=== PATIENT | female | born 1975 | race Caucasian/White ===

== ENCOUNTER 2025-01-08 13:22 | Inpatient (IN) | payer OTHER ==
[2025-01-08] VITALS (10 sets, daily range): BP systolic 123–144; BP diastolic 82–97; PULSE 63–100; RESP 24–27; TEMP 36.6–36.6404; O2SAT 58–100
[~2025-01-08] VITALS: Ht 167.6 cm; Wt 110.7 kg
[2025-01-08 14:58] LABS: BASOPHILS % 0.8 % (0.0-2.0); EOSINOPHILS % 2.1 % (0.0-5.0); HEMATOCRIT. 47.5 % (36.0-48.0); HEMOGLOBIN. 14.9 g/dL (12.0-16.0); LYMPHOCYTES % 30.8 % (20.0-50.0); MONOCYTES % 5.2 % (2.0-8.0); NEUTROPHILS % 61.1 % (40.0-76.0); RED BLOOD CELL COUNT 4.95 mill/uL (4.2-5.4); RED CELL DISTRIBUTION WIDTH 18.4 % (11.6-14.6)
[2025-01-08 15:05] LABS: CREATININE 0.9 mg/dL (0.6-1.0); UREA NITROGEN BLOOD 14 mg/dL (9-23)
[2025-01-08 15:07] LABS: ASPARTATE AMINOTRANSFERASE 130 IU/L (<34); BILIRUBIN DIRECT 0.3 mg/dL (<=3.0); BILIRUBIN TOTAL 0.6 mg/dL (0.1-1.0); PROTEIN TOTAL 7.1 g/dL (6.0-8.3)
[2025-01-08 15:10] LABS: INR 1.2
[2025-01-08 15:11] LABS: BG BASE EXCESS 8.3 mmol/L (-2.0-3.0); BG CARBOXYHEMOGLOBIN 1.7 % (0.5-1.5); BG DEOXYHEMOGLOBIN 2.5 % (0.0-5.0); BG FLOW(L/min) 15.00 L/min; BG FRACTION INSPIRED OXYGEN 100; BG HCO3 ACT 45.3 mmol/L (21.0-28.0); BG METHEMOGLOBIN 0.4 % (0.5-1.5); BG OXYGEN SATURATION 97.4 % (94.0-98.0); BG OXYHEMOGLOBIN 95.4 % (94.0-98.0); BG PCO2 150.5 mmHg (32.0-45.0); BG PH 7.096 (7.350-7.450); BG PO2 132.1 mmHg (83.0-108.0); BG SAMPLE SITE RIGHT RADIAL; BG TOTAL HEMOGLOBIN 16.7 g/dL (12.0-16.0); BG VENT MODE MASK - NRB
[2025-01-08 15:14] LABS: ADD RBC MORPHOLOGY YES
[2025-01-08] MEDS: PROPOFOL 10MG/ML 100ML 100 ML IV PRN (15:45)
[2025-01-08] MEDS ORDERED: PROPOFOL 10MG/ML 100ML 100 ML IV PRN (15:45)
[2025-01-08] MEDS: FENTANYL CITRATE/PF 50MCG/ML 2ML VIAL IV ONE (15:56)
[2025-01-08 16:05] LABS: MEAN PLATELET VOLUME 9.8 fl (7.4-10.4); PLATELET 143 x1000/uL (130-400)
[2025-01-08] MEDS ORDERED: VANCOMYCIN 1G PREMIX 200 ML IV STA (16:08)
[2025-01-08] MEDS: SODIUM CHLORIDE 0.9% (SEPSIS BOLUS) IV ONE ×3 (16:15→17:54)
[2025-01-08 16:28] LABS: PLATELET ESTIMATE NORMAL
[2025-01-08 17:46] LABS: INR 1.2
[2025-01-08 17:49] LABS: CREATININE 0.9 mg/dL (0.6-1.0); UREA NITROGEN BLOOD 15 mg/dL (9-23)
[2025-01-08] MEDS: PIPERACILLIN/TAZO 3.375G/50ML 50 ML IV STA (17:57)
[2025-01-08] MEDS: VANCOMYCIN 1G PREMIX 200 ML IV SCH (19:45)
[2025-01-08 20:40] LABS: CLARITY URINE CLEAR (CLEAR); COLOR URINE YELLOW (YELLOW); GLUCOSE URINE 3+ (NEGATIVE); KETONES URINE 1+ (NEGATIVE); LEUKOCYTE ESTERASE URINE NEGATIVE (NEGATIVE); NITRITE URINE POSITIVE (NEGATIVE); OCCULT BLOOD URINE NEGATIVE (NEGATIVE); PH URINE 6.0 (4.5-8.0); PROTEIN URINE 1+ (NEGATIVE); SPECIFIC GRAVITY URINE 1.024 (1.005-1.030); UROBILINOGEN URINE 1.0 E.U./dL (0.2-1.0)
[2025-01-08 20:51] LABS: BACTERIA URINE 3+; RBC URINE 0-2 /hpf (0-2); SQUAMOUS EPITHELIAL CELL URINE FEW /lpf (RARE/1+); WBC URINE 0-2 /hpf (0-2)
[2025-01-08] MEDS ORDERED: MIDAZOLAM 100MG/100ML PMX 100 ML IV PRN (21:30)
[2025-01-08] MEDS ORDERED: FENTANYL 2500MCG/250ML PMX 250 ML IV PRN (21:30)
[2025-01-08] MEDS ORDERED: GUAIFENESIN 200MG/10ML SUGAR FREE UDC PO PRN (22:00)
[2025-01-08] MEDS ORDERED: MAGNESIUM/ALUMINUM HYDROXIDE/SIMETHICONE 30ML UDC PO PRN (22:00)
[2025-01-08] MEDS ORDERED: IPRATROPIUM/ALBUTEROL 0.5-3(2.5)MG/3ML NEB HHN PRN (22:00)
[2025-01-08] MEDS: LORAZEPAM 2MG/ML UD SYRINGE IV PRN (22:26)
[2025-01-08] MEDS: MIDAZOLAM 100MG/100ML PMX 100 ML IV PRN (23:42)
[2025-01-08] MEDS: FENTANYL CITRATE/PF 2,500 MCG in SODIUM CHLORIDE 0.9% 200 ML IV PRN (23:43)
[2025-01-09] VITALS (108 sets, daily range): BP systolic 88–167; BP diastolic 55–114; PULSE 56–95; RESP 17–27; TEMP 36.6–37.5; O2SAT 91–100
[2025-01-09] MEDS: PIPERACILLIN/TAZO 3.375G/50ML 50 ML IV SCH (00:52)
[2025-01-09 02:27] LABS: TROPONIN I HIGH SENSITIVITY 121 ng/L (3.0-34)
[2025-01-09] MEDS: VANCOMYCIN 1GM/200ML PMX (BAXTER) IV SCH (02:57)
[2025-01-09] MEDS: AZITHROMYCIN 500MG/250ML 250 ML IV SCH (04:10)
[2025-01-09] MEDS ORDERED: DEXTROSE 50% WATER 50ML SYRINGE IV PRN (04:15)
[2025-01-09 05:00] LABS: BG BASE EXCESS 7.6 mmol/L (-2.0-3.0); BG CARBOXYHEMOGLOBIN 1.3 % (0.5-1.5); BG DEOXYHEMOGLOBIN 0.6 % (0.0-5.0); BG FRACTION INSPIRED OXYGEN 100; BG HCO3 ACT 33.4 mmol/L (21.0-28.0); BG METHEMOGLOBIN 0.2 % (0.5-1.5); BG OXYGEN SATURATION 99.4 % (94.0-98.0); BG OXYHEMOGLOBIN 97.9 % (94.0-98.0); BG PCO2 51.3 mmHg (32.0-45.0); BG PH 7.432 (7.350-7.450); BG PO2 151.5 mmHg (83.0-108.0); BG TIDAL VOLUME(mL) 450.0 mL; BG TOTAL HEMOGLOBIN 15.1 g/dL (12.0-16.0); BG VENT MODE VENT - AC
[2025-01-09 05:32] LABS: BASOPHILS % 0.5 % (0.0-2.0); EOSINOPHILS % 3.0 % (0.0-5.0); HEMATOCRIT. 43.5 % (36.0-48.0); HEMOGLOBIN. 13.6 g/dL (12.0-16.0); LYMPHOCYTES % 32.7 % (20.0-50.0); MEAN PLATELET VOLUME 9.2 fl (7.4-10.4); MONOCYTES % 4.1 % (2.0-8.0); NEUTROPHILS % 59.7 % (40.0-76.0); PLATELET 134 x1000/uL (130-400); RED BLOOD CELL COUNT 4.61 mill/uL (4.2-5.4); RED CELL DISTRIBUTION WIDTH 17.9 % (11.6-14.6)
[2025-01-09] MEDS: BLOOD SUGAR DIAGNOSTIC STRIP TEST SCH ×2 (05:58→12:00)
[2025-01-09 06:02] LABS: CREATININE 0.8 mg/dL (0.6-1.0); TRIGLYCERIDE 219 mg/dL (0-150); UREA NITROGEN BLOOD 12 mg/dL (9-23)
[2025-01-09 06:03] LABS: LDL CHOLESTEROL 117 mg/dL (5-100)
[2025-01-09] MEDS: FUROSEMIDE 20MG/2ML VIAL IVP NR (06:04)
[2025-01-09] MEDS: INSULIN LISPRO 100 UNITS/ML SUBCUT SCH ×2 (06:04→12:10)
[2025-01-09 06:26] LABS: TROPONIN I HIGH SENSITIVITY 115 ng/L (3.0-34)
[2025-01-09] MEDS: PANTOPRAZOLE SODIUM 40 MG/VIAL IV SCH (08:30)
[2025-01-09] MEDS: ENOXAPARIN 30MG/0.3ML SYR SUBCUT SCH (08:31)
[2025-01-09 09:14] LABS: T4 FREE 1.14 ng/dL (0.89-1.76)
[2025-01-09 09:25] LABS: BG BASE EXCESS 11.4 mmol/L (-2.0-3.0); BG CARBOXYHEMOGLOBIN 1.4 % (0.5-1.5); BG DEOXYHEMOGLOBIN 4.8 % (0.0-5.0); BG FRACTION INSPIRED OXYGEN 80; BG HCO3 ACT 36.3 mmol/L (21.0-28.0); BG METHEMOGLOBIN 0.1 % (0.5-1.5); BG OXYGEN SATURATION 95.1 % (94.0-98.0); BG OXYHEMOGLOBIN 93.7 % (94.0-98.0); BG PCO2 47.7 mmHg (32.0-45.0); BG PEEP (cmH2O) 8.0 cmH2O; BG PH 7.499 (7.350-7.450); BG PO2 69.3 mmHg (83.0-108.0); BG SAMPLE SITE RIGHT RADIAL; BG TIDAL VOLUME(mL) 450.0 mL; BG TOTAL HEMOGLOBIN 14.8 g/dL (12.0-16.0); BG VENT MODE VENT - AC; BG VENT RATE 24.0 set
[2025-01-09 10:34] LABS: *AMPHETAMINES SCREEN URINE NEGATIVE (NEGATIVE); *BARBITURATES SCREEN URINE NEGATIVE (NEGATIVE); *BENZODIAZEPINES SCREEN URINE PRESUMPTIVE POSITIVE (NEGATIVE); *COCAINE SCREEN URINE NEGATIVE (NEGATIVE); CANNABINOID URINE SCREEN NEGATIVE (NEGATIVE); ECSTASY MDMA SCREEN URINE NEGATIVE (NEGATIVE); METHADONE URINE SCREEN NEGATIVE (NEGATIVE); OPIATES URINE SCREEN NEGATIVE (NEGATIVE); PHENCYCLIDINE URINE SCREEN NEGATIVE (NEGATIVE)
[2025-01-09] MEDS: INSULIN GLARGINE 100 UNITS/ML SUBCUT SCH (10:39)
[2025-01-09] MEDS: VANCOMYCIN 1.5GM/250ML 250 ML IV SCH (10:59)
[2025-01-09] MEDS ORDERED: SODIUM CHLORIDE 0.9% 1,000 ML IV SCH (14:00)
[2025-01-09 14:30] LABS: INFLUENZA TYPE A Presumptive Negative (Pres. Neg.); INFLUENZA TYPE B Presumptive Negative (Pres. Neg.)
[2025-01-09 20:25] LABS: INFLUENZA TYPE A Presumptive Negative (Pres. Neg.)
[2025-01-09 20:26] LABS: INFLUENZA TYPE B Presumptive Negative (Pres. Neg.)
[2025-01-10] VITALS (108 sets, daily range): BP systolic 78–156; BP diastolic 48–130; PULSE 61–92; RESP 15–27; TEMP 37.3–37.7; O2SAT 89–95
[2025-01-10] MEDS: AZITHROMYCIN 500MG/250ML 250 ML IV SCH (01:08)
[2025-01-10 05:07] LABS: UREA NITROGEN BLOOD 13.0 mg/dL (9-23)
[2025-01-10 05:18] LABS: CREATININE 1.7 mg/dL (0.6-1.0)
[2025-01-10] MEDS ORDERED: POTASSIUM CHLORIDE 40 MEQ in DEXT 5% WATER 230 ML IV ONE (07:30)
[2025-01-10] MEDS: DEXMEDETOMIDINE 250 ML IV PRN (09:19)
[2025-01-10 09:30] LABS: BG BASE EXCESS 8.2 mmol/L (-2.0-3.0); BG CARBOXYHEMOGLOBIN 1.4 % (0.5-1.5); BG DEOXYHEMOGLOBIN 6.2 % (0.0-5.0); BG FRACTION INSPIRED OXYGEN 100; BG HCO3 ACT 33.5 mmol/L (21.0-28.0); BG METHEMOGLOBIN 0.1 % (0.5-1.5); BG OXYGEN SATURATION 93.7 % (94.0-98.0); BG OXYHEMOGLOBIN 92.3 % (94.0-98.0); BG PCO2 48.4 mmHg (32.0-45.0); BG PEEP (cmH2O) 8.0 cmH2O; BG PH 7.458 (7.350-7.450); BG PO2 67.5 mmHg (83.0-108.0); BG SAMPLE SITE RIGHT RADIAL; BG TIDAL VOLUME(mL) 500.0 mL; BG TOTAL HEMOGLOBIN 15.2 g/dL (12.0-16.0); BG VENT MODE VENT - AC; BG VENT RATE 24.0 set
[2025-01-10] MEDS: INSULIN GLARGINE 100 UNITS/ML SUBCUT SCH (09:35)
[2025-01-10] MEDS: KCL 20MEQ/100ML X 2 FOR TOTAL KCL 40MEQ/200ML IV SCH ×2 (09:37→14:30)
[2025-01-10] MEDS: SODIUM CHLORIDE 0.9% 500 ML IV ONE (11:00)
[2025-01-10 11:19] LABS: PHOSPHORUS 2.1 mg/dL (2.5-4.9)
[2025-01-10 11:21] LABS: TRIGLYCERIDE 233 mg/dL (0-150)
[2025-01-10 11:22] LABS: LDL CHOLESTEROL 110 mg/dL (5-100)
[2025-01-10 11:23] LABS: T4 FREE 1.03 ng/dL (0.89-1.76)
[2025-01-10 14:14] LABS: ASPARTATE AMINOTRANSFERASE 85 IU/L (<34)
[2025-01-10 14:15] LABS: BILIRUBIN DIRECT 0.4 mg/dL (<=3.0); BILIRUBIN TOTAL 0.9 mg/dL (0.1-1.0); PROTEIN TOTAL 5.6 g/dL (6.0-8.3)
[2025-01-10 14:26] LABS: CREATINE KINASE MB FRACTION 1.1 ng/mL (0.5-3.6)
[2025-01-10 14:31] LABS: TROPONIN I HIGH SENSITIVITY 68.0 ng/L (3.0-34)
[2025-01-10] MEDS: SODIUM CHLORIDE 0.9% 1,000 ML IV SCH (15:45)
[2025-01-10] MEDS: MAGNESIUM 2 G PREMIX 50 ML IV SCH (15:53)
[2025-01-11] VITALS (105 sets, daily range): BP systolic 84–237; BP diastolic 46–125; PULSE 47–70; RESP 6–27; TEMP 37.1–39.5; O2SAT 90–100
[2025-01-11] MEDS: ACETAMINOPHEN 325MG TABLET NG PRN (00:01)
[2025-01-11 01:24] LABS: CREATINE KINASE MB FRACTION < 0.5 ng/mL (0.5-3.6)
[2025-01-11 01:30] LABS: TROPONIN I HIGH SENSITIVITY 52 ng/L (3.0-34)
[2025-01-11 06:09] LABS: BASOPHILS % 0.6 % (0.0-2.0); EOSINOPHILS % 2.2 % (0.0-5.0); HEMATOCRIT. 47.0 % (36.0-48.0); HEMOGLOBIN. 14.8 g/dL (12.0-16.0); LYMPHOCYTES % 24.9 % (20.0-50.0); MEAN PLATELET VOLUME 9.7 fl (7.4-10.4); MONOCYTES % 3.8 % (2.0-8.0); NEUTROPHILS % 68.5 % (40.0-76.0); PLATELET 160 x1000/uL (130-400); RED BLOOD CELL COUNT 5.01 mill/uL (4.2-5.4); RED CELL DISTRIBUTION WIDTH 18.3 % (11.6-14.6)
[2025-01-11 06:11] LABS: CREATINE KINASE MB FRACTION < 0.5 ng/mL (0.5-3.6)
[2025-01-11 06:13] LABS: UREA NITROGEN BLOOD 21.0 mg/dL (9-23)
[2025-01-11 06:31] LABS: CREATININE 3.7 mg/dL (0.6-1.0); TROPONIN I HIGH SENSITIVITY 47 ng/L (3.0-34)
[2025-01-11 09:11] LABS: RESPIRATORY SYNCYTIAL VIRUS Not Detected (Not Detectd)
[2025-01-11] MEDS ORDERED: SODIUM BICARBONATE 8.4% 50MEQ/50ML SYR IV ONE (09:30)
[2025-01-11 09:51] LABS: BG BASE EXCESS 3.8 mmol/L (-2.0-3.0); BG CARBOXYHEMOGLOBIN 2.2 % (0.5-1.5); BG DEOXYHEMOGLOBIN 5.3 % (0.0-5.0); BG FRACTION INSPIRED OXYGEN 100; BG HCO3 ACT 27.6 mmol/L (21.0-28.0); BG METHEMOGLOBIN 0.1 % (0.5-1.5); BG OXYGEN SATURATION 94.6 % (94.0-98.0); BG OXYHEMOGLOBIN 92.4 % (94.0-98.0); BG PCO2 39.1 mmHg (32.0-45.0); BG PEEP (cmH2O) 8.0 cmH2O; BG PH 7.467 (7.350-7.450); BG PO2 68.0 mmHg (83.0-108.0); BG SAMPLE SITE RIGHT BRACHIAL; BG TIDAL VOLUME(mL) 500.0 mL; BG TOTAL HEMOGLOBIN 15.5 g/dL (12.0-16.0); BG VENT MODE VENT - CPAP; BG VENT RATE 24.0 set
[2025-01-11] MEDS: SODIUM BICARBONATE 8.4% 50MEQ/50ML SYR IV SCH (11:09)
[2025-01-11] MEDS: SODIUM CHLORIDE 0.9% 500 ML IV SCH (11:12)
[2025-01-11] MEDS ORDERED: LIDOCAINE HCL 1% 10 MG/ML 10ML VIAL ONE (12:16)
[2025-01-11] MEDS ORDERED: HEPARIN 1000 UNITS/ML 10ML ONE (12:16)
[2025-01-11] MEDS: FUROSEMIDE 100MG/10ML VIAL IVP SCH (12:50)
[2025-01-11] MEDS: NOREPINEPHRINE 32 MG in DEXT 5% WATER 218 ML IV PRN (13:00)
[2025-01-11 13:54] LABS: HEPATITIS A AB IGM NEGATIVE (Negative)
[2025-01-11 13:55] LABS: HEPATITIS B CORE AB IGM NEGATIVE (Negative)
[2025-01-11 13:56] LABS: HEPATITIS C AB NON REACTIVE (Neg) (Negative)
[2025-01-11 14:42] LABS: CREATININE URINE RANDOM 128.2 mg/dL
[2025-01-11 14:49] LABS: PROTEIN URINE RANDOM 237.0 mg/dL
[2025-01-11 15:00] LABS: RESPIRATORY SYNCYTIAL VIRUS Not Detected (Not Detectd)
[2025-01-11] MEDS: INSULIN LISPRO 100 UNITS/ML SUBCUT SCH (16:39)
[2025-01-12] VITALS (100 sets, daily range): BP systolic 81–187; BP diastolic 42–120; PULSE 47–65; RESP 0–27; TEMP 36.3918–37.9; O2SAT 90–99
[2025-01-12 05:49] LABS: BASOPHILS % 0.5 % (0.0-2.0); EOSINOPHILS % 2.0 % (0.0-5.0); HEMATOCRIT. 43.9 % (36.0-48.0); HEMOGLOBIN. 14.1 g/dL (12.0-16.0); LYMPHOCYTES % 23.3 % (20.0-50.0); MEAN PLATELET VOLUME 9.2 fl (7.4-10.4); MONOCYTES % 3.7 % (2.0-8.0); NEUTROPHILS % 70.5 % (40.0-76.0); PLATELET 152 x1000/uL (130-400); RED BLOOD CELL COUNT 4.75 mill/uL (4.2-5.4); RED CELL DISTRIBUTION WIDTH 18.6 % (11.6-14.6)
[2025-01-12 05:59] LABS: CREATININE 4.7 mg/dL (0.6-1.0); UREA NITROGEN BLOOD 28.0 mg/dL (9-23)
[2025-01-12 09:04] LABS: BG BASE EXCESS -0.4 mmol/L (-2.0-3.0); BG CARBOXYHEMOGLOBIN 1.6 % (0.5-1.5); BG DEOXYHEMOGLOBIN 5.4 % (0.0-5.0); BG FRACTION INSPIRED OXYGEN 80; BG HCO3 ACT 22.2 mmol/L (21.0-28.0); BG METHEMOGLOBIN 0.1 % (0.5-1.5); BG OXYGEN SATURATION 94.5 % (94.0-98.0); BG OXYHEMOGLOBIN 92.9 % (94.0-98.0); BG PCO2 31.4 mmHg (32.0-45.0); BG PEEP (cmH2O) 8.0 cmH2O; BG PH 7.468 (7.350-7.450); BG PO2 71.9 mmHg (83.0-108.0); BG SAMPLE SITE RIGHT BRACHIAL; BG TIDAL VOLUME(mL) 500.0 mL; BG TOTAL HEMOGLOBIN 15.2 g/dL (12.0-16.0); BG VENT MODE VENT - AC; BG VENT RATE 24.0 set
[2025-01-12] MEDS: PIPERACILLIN/TAZO 3.375G/50ML IV SCH (21:10)
[2025-01-13] VITALS (111 sets, daily range): BP systolic 63–187; BP diastolic 45–105; PULSE 55–77; RESP 7–28; TEMP 36.6–37.4; O2SAT 84–99
[2025-01-13 05:35] LABS: BASOPHILS % 0.4 % (0.0-2.0); EOSINOPHILS % 3.1 % (0.0-5.0); HEMATOCRIT. 40.9 % (36.0-48.0); HEMOGLOBIN. 13.1 g/dL (12.0-16.0); LYMPHOCYTES % 18.7 % (20.0-50.0); MEAN PLATELET VOLUME 10.2 fl (7.4-10.4); MONOCYTES % 4.5 % (2.0-8.0); NEUTROPHILS % 73.3 % (40.0-76.0); PLATELET 170 x1000/uL (130-400); RED BLOOD CELL COUNT 4.37 mill/uL (4.2-5.4); RED CELL DISTRIBUTION WIDTH 18.3 % (11.6-14.6)
[2025-01-13 06:13] LABS: UREA NITROGEN BLOOD 29 mg/dL (9-23)
[2025-01-13 06:14] LABS: ASPARTATE AMINOTRANSFERASE 34 IU/L (<34); BILIRUBIN DIRECT 0.3 mg/dL (<=3.0); PHOSPHORUS 5.0 mg/dL (2.5-4.9)
[2025-01-13 06:15] LABS: BILIRUBIN TOTAL 0.6 mg/dL (0.1-1.0); PROTEIN TOTAL 5.6 g/dL (6.0-8.3)
[2025-01-13 06:35] LABS: CREATININE 5.2 mg/dL (0.6-1.0)
[2025-01-13] MEDS: METHYLPREDNISOLONE SOD SUCC 40MG/ML (ACT-O-VIAL) IV SCH (08:15)
[2025-01-13 09:05] LABS: BG BASE EXCESS -0.1 mmol/L (-2.0-3.0); BG CARBOXYHEMOGLOBIN 0.8 % (0.5-1.5); BG DEOXYHEMOGLOBIN 6.7 % (0.0-5.0); BG FRACTION INSPIRED OXYGEN 70; BG HCO3 ACT 24.7 mmol/L (21.0-28.0); BG METHEMOGLOBIN 0.3 % (0.5-1.5); BG OXYGEN SATURATION 93.2 % (94.0-98.0); BG OXYHEMOGLOBIN 92.2 % (94.0-98.0); BG PCO2 41.1 mmHg (32.0-45.0); BG PEEP (cmH2O) 8.0 cmH2O; BG PH 7.397 (7.350-7.450); BG PO2 66.2 mmHg (83.0-108.0); BG SAMPLE SITE RIGHT RADIAL; BG TIDAL VOLUME(mL) 500.0 mL; BG TOTAL HEMOGLOBIN 15.0 g/dL (12.0-16.0); BG TOTAL RESPIRATORY RATE 22 b/min; BG VENT MODE VENT - AC; BG VENT RATE 20.0 set
[2025-01-13] MEDS: DOCUSATE SODIUM 100MG CAPSULE PO SCH (09:18)
[2025-01-13] MEDS ORDERED: INSULIN LISPRO 100 UNITS/ML SUBCUT SCH (11:30)
[2025-01-13] MEDS: MAGNESIUM 2 G PREMIX 50 ML IV NR (12:43)
[2025-01-13] MEDS ORDERED: LACTULOSE 20G/30ML UDC PO PRN (21:00)
[2025-01-13] MEDS: IPRATROPIUM/ALBUTEROL 0.5-3(2.5)MG/3ML NEB NEB PRN (21:14)
[2025-01-13 22:09] LABS: BG BASE EXCESS -3.7 mmol/L (-2.0-3.0); BG CARBOXYHEMOGLOBIN 0.7 % (0.5-1.5); BG DEOXYHEMOGLOBIN 12.9 % (0.0-5.0); BG FRACTION INSPIRED OXYGEN 100; BG HCO3 ACT 22.4 mmol/L (21.0-28.0); BG METHEMOGLOBIN 0.3 % (0.5-1.5); BG OXYGEN SATURATION 87.0 % (94.0-98.0); BG OXYHEMOGLOBIN 86.1 % (94.0-98.0); BG PCO2 44.2 mmHg (32.0-45.0); BG PEEP (cmH2O) 12.0 cmH2O; BG PH 7.323 (7.350-7.450); BG PO2 56.0 mmHg (83.0-108.0); BG SAMPLE SITE ALINE; BG TIDAL VOLUME(mL) 500.0 mL; BG TOTAL HEMOGLOBIN 15.8 g/dL (12.0-16.0); BG VENT RATE 20.0 set
[2025-01-13] MEDS ORDERED: LORAZEPAM 0.5MG TABLET PO PRN (22:15)
[2025-01-13] MEDS: VECURONIUM BROMIDE 50 MG in DEXTROSE 5% WATER 50 ML IV PRN (23:01)
[2025-01-14] VITALS (106 sets, daily range): BP systolic 121–140; BP diastolic 91–99; PULSE 51–64; RESP 11–21; TEMP 36.8–37.2; O2SAT 82–93
[2025-01-14 01:03] LABS: BG BASE EXCESS -5.2 mmol/L (-2.0-3.0); BG CARBOXYHEMOGLOBIN 0.7 % (0.5-1.5); BG DEOXYHEMOGLOBIN 8.2 % (0.0-5.0); BG FRACTION INSPIRED OXYGEN 100; BG HCO3 ACT 20.8 mmol/L (21.0-28.0); BG METHEMOGLOBIN 0.3 % (0.5-1.5); BG OXYGEN SATURATION 91.7 % (94.0-98.0); BG OXYHEMOGLOBIN 90.8 % (94.0-98.0); BG PCO2 42.1 mmHg (32.0-45.0); BG PEEP (cmH2O) 12.0 cmH2O; BG PH 7.311 (7.350-7.450); BG PO2 67.4 mmHg (83.0-108.0); BG SAMPLE SITE ALINE; BG TIDAL VOLUME(mL) 500.0 mL; BG TOTAL HEMOGLOBIN 15.2 g/dL (12.0-16.0); BG VENT RATE 20.0 set
[2025-01-14] MEDS ORDERED: FENTANYL 2500MCG/250ML PMX 250 ML IV ONE (03:45)
[2025-01-14 05:24] LABS: HEMATOCRIT. 44.9 % (36.0-48.0); HEMOGLOBIN. 14.4 g/dL (12.0-16.0); RED BLOOD CELL COUNT 4.83 mill/uL (4.2-5.4); RED CELL DISTRIBUTION WIDTH 18.0 % (11.6-14.6)
[2025-01-14 05:33] LABS: CREATININE 4.7 mg/dL (0.6-1.0); UREA NITROGEN BLOOD 41 mg/dL (9-23)
[2025-01-14 05:35] LABS: PHOSPHORUS 6.7 mg/dL (2.5-4.9)
[2025-01-14] MEDS: FENTANYL CITRATE 2,500 MCG in SODIUM CHLORIDE 0.9% 200 ML IV PRN (07:23)
[2025-01-14] MEDS ORDERED: MIDAZOLAM 100MG/100ML PMX 100 ML IV PRN ×2 (08:00→09:15)
[2025-01-14] MEDS: ENOXAPARIN 40MG/0.4ML SYR SUBCUT SCH (08:18)
[2025-01-14 08:39] LABS: BG BASE EXCESS -5.6 mmol/L (-2.0-3.0); BG CARBOXYHEMOGLOBIN 0.7 % (0.5-1.5); BG DEOXYHEMOGLOBIN 7.7 % (0.0-5.0); BG FRACTION INSPIRED OXYGEN 100; BG HCO3 ACT 20.7 mmol/L (21.0-28.0); BG METHEMOGLOBIN 0.3 % (0.5-1.5); BG OXYGEN SATURATION 92.2 % (94.0-98.0); BG OXYHEMOGLOBIN 91.3 % (94.0-98.0); BG PCO2 43.3 mmHg (32.0-45.0); BG PEEP (cmH2O) 12.0 cmH2O; BG PH 7.298 (7.350-7.450); BG PO2 68.4 mmHg (83.0-108.0); BG SAMPLE SITE ALINE; BG TIDAL VOLUME(mL) 500.0 mL; BG TOTAL HEMOGLOBIN 15.6 g/dL (12.0-16.0); BG VENT MODE VENT - AC; BG VENT RATE 20.0 set
[2025-01-14] MEDS: MIDAZOLAM 100MG/100ML PREMIX IV PRN (09:36)
[2025-01-14 10:32] LABS: BAND% 13.0 % (1.0-6.0); LYMPHOCYTES % MANUAL 13.0 % (20.0-60.0); MONOCYTES % MANUAL 1.0 % (2.0-8.0); NEUTROPHILS % MANUAL 73.0 % (45.0-75.0)
[2025-01-14 10:33] LABS: PLATELET ESTIMATE NORMAL
[2025-01-14 14:24] LABS: PLATELET 196 x1000/uL (130-400)
[2025-01-14] MEDS: METHYLPREDNISOLONE SOD SUCC 125MG/2ML (ACT-O-VIAL) IV SCH (16:50)
[2025-01-15] VITALS (109 sets, daily range): BP systolic 94–217; BP diastolic 69–118; PULSE 50–101; RESP 7–26; TEMP 37–38; O2SAT 87–99
[2025-01-15] MEDS: INSULIN LISPRO 100 UNITS/ML SUBCUT SCH (05:35)
[2025-01-15 05:51] LABS: BASOPHILS % 0.3 % (0.0-2.0); EOSINOPHILS % 0.1 % (0.0-5.0); HEMATOCRIT. 46.1 % (36.0-48.0); HEMOGLOBIN. 14.6 g/dL (12.0-16.0); LYMPHOCYTES % 9.6 % (20.0-50.0); MEAN PLATELET VOLUME 10.5 fl (7.4-10.4); MONOCYTES % 2.0 % (2.0-8.0); NEUTROPHILS % 88.0 % (40.0-76.0); PLATELET 244 x1000/uL (130-400); RED BLOOD CELL COUNT 4.99 mill/uL (4.2-5.4); RED CELL DISTRIBUTION WIDTH 17.8 % (11.6-14.6)
[2025-01-15 06:03] LABS: UREA NITROGEN BLOOD 69 mg/dL (9-23)
[2025-01-15 06:05] LABS: ASPARTATE AMINOTRANSFERASE 19 IU/L (<34); BILIRUBIN DIRECT 0.3 mg/dL (<=3.0); BILIRUBIN TOTAL 0.4 mg/dL (0.1-1.0); PROTEIN TOTAL 6.0 g/dL (6.0-8.3)
[2025-01-15 06:17] LABS: CREATININE 6.0 mg/dL (0.6-1.0)
[2025-01-15] MEDS: METOCLOPRAMIDE HCL 10MG/2ML VIAL IV SCH (08:27)
[2025-01-15] MEDS: INSULIN GLARGINE 100 UNITS/ML SUBCUT SCH (10:06)
[2025-01-15 10:42] LABS: BG BASE EXCESS -7.0 mmol/L (-2.0-3.0); BG CARBOXYHEMOGLOBIN 0.6 % (0.5-1.5); BG DEOXYHEMOGLOBIN 11.8 % (0.0-5.0); BG FRACTION INSPIRED OXYGEN 90; BG HCO3 ACT 18.7 mmol/L (21.0-28.0); BG METHEMOGLOBIN 0.3 % (0.5-1.5); BG OXYGEN SATURATION 88.1 % (94.0-98.0); BG OXYHEMOGLOBIN 87.3 % (94.0-98.0); BG PCO2 38.8 mmHg (32.0-45.0); BG PEEP (cmH2O) 12.0 cmH2O; BG PH 7.302 (7.350-7.450); BG PO2 59.5 mmHg (83.0-108.0); BG SAMPLE SITE RIGHT RADIAL; BG TIDAL VOLUME(mL) 500.0 mL; BG TOTAL HEMOGLOBIN 16.0 g/dL (12.0-16.0); BG VENT MODE VENT - PRVC; BG VENT RATE 20.0 set
[2025-01-15] MEDS: DEXMEDETOMIDINE 250 ML IV PRN (11:43)
[2025-01-15] MEDS ORDERED: TOPUD MT (12:27)
[2025-01-16] VITALS (106 sets, daily range): BP systolic 103–144; BP diastolic 71–127; PULSE 52–61; RESP 11–23; TEMP 36.7–37.3; O2SAT 91–99
[2025-01-16 05:29] LABS: BASOPHILS % 0.3 % (0.0-2.0); EOSINOPHILS % 0.0 % (0.0-5.0); HEMATOCRIT. 45.3 % (36.0-48.0); HEMOGLOBIN. 14.5 g/dL (12.0-16.0); LYMPHOCYTES % 13.0 % (20.0-50.0); MEAN PLATELET VOLUME 9.9 fl (7.4-10.4); MONOCYTES % 2.4 % (2.0-8.0); NEUTROPHILS % 84.3 % (40.0-76.0); PLATELET 184 x1000/uL (130-400); RED BLOOD CELL COUNT 4.96 mill/uL (4.2-5.4); RED CELL DISTRIBUTION WIDTH 17.6 % (11.6-14.6)
[2025-01-16 05:50] LABS: UREA NITROGEN BLOOD 80 mg/dL (9-23)
[2025-01-16 05:52] LABS: PHOSPHORUS 7.9 mg/dL (2.5-4.9)
[2025-01-16 06:14] LABS: CREATININE 5.8 mg/dL (0.6-1.0)
[2025-01-16 08:37] LABS: BG BASE EXCESS -4.8 mmol/L (-2.0-3.0); BG CARBOXYHEMOGLOBIN 1.0 % (0.5-1.5); BG DEOXYHEMOGLOBIN 6.9 % (0.0-5.0); BG FRACTION INSPIRED OXYGEN 90; BG HCO3 ACT 20.9 mmol/L (21.0-28.0); BG METHEMOGLOBIN 0.2 % (0.5-1.5); BG OXYGEN SATURATION 93.0 % (94.0-98.0); BG OXYHEMOGLOBIN 91.9 % (94.0-98.0); BG PCO2 41.1 mmHg (32.0-45.0); BG PEEP (cmH2O) 12.0 cmH2O; BG PH 7.324 (7.350-7.450); BG PO2 75.0 mmHg (83.0-108.0); BG SAMPLE SITE ALINE; BG TIDAL VOLUME(mL) 500.0 mL; BG TOTAL HEMOGLOBIN 15.3 g/dL (12.0-16.0); BG VENT MODE VENT - AC/prvc; BG VENT RATE 20.0 set
[2025-01-16] MEDS: INSULIN LISPRO 100 UNITS/ML SUBCUT SCH (12:43)
[2025-01-16] MEDS: IPRATROPIUM/ALBUTEROL 0.5-3(2.5)MG/3ML NEB HHN SCH (20:41)
[2025-01-17] VITALS (110 sets, daily range): BP systolic 97–166; BP diastolic 71–107; PULSE 52–98; RESP 10–30; TEMP 36.7–37.7; O2SAT 82–99
[2025-01-17 05:42] LABS: BASOPHILS % 0.2 % (0.0-2.0); EOSINOPHILS % 0.0 % (0.0-5.0); HEMATOCRIT. 46.0 % (36.0-48.0); HEMOGLOBIN. 14.4 g/dL (12.0-16.0); LYMPHOCYTES % 12.7 % (20.0-50.0); MEAN PLATELET VOLUME 10.0 fl (7.4-10.4); MONOCYTES % 2.3 % (2.0-8.0); NEUTROPHILS % 84.8 % (40.0-76.0); PLATELET 178 x1000/uL (130-400); RED BLOOD CELL COUNT 4.95 mill/uL (4.2-5.4); RED CELL DISTRIBUTION WIDTH 17.6 % (11.6-14.6)
[2025-01-17 05:58] LABS: UREA NITROGEN BLOOD 78 mg/dL (9-23)
[2025-01-17 05:59] LABS: ASPARTATE AMINOTRANSFERASE 22 IU/L (<34); BILIRUBIN DIRECT 0.3 mg/dL (<=3.0)
[2025-01-17 06:00] LABS: BILIRUBIN TOTAL 0.5 mg/dL (0.1-1.0); PHOSPHORUS 7.2 mg/dL (2.5-4.9); PROTEIN TOTAL 5.5 g/dL (6.0-8.3)
[2025-01-17 06:07] LABS: CREATININE 5.0 mg/dL (0.6-1.0)
[2025-01-17] MEDS: DOCUSATE SODIUM SUGAR FREE 100MG/10ML UDC NG SCH (07:54)
[2025-01-17] MEDS: PIPERACILLIN/TAZO 3.375G/50ML 50 ML IV SCH (10:00)
[2025-01-17] MEDS: SENNOSIDES 8.6MG TABLET PO PRN (10:00)
[2025-01-17 11:07] LABS: BG BASE EXCESS -1.9 mmol/L (-2.0-3.0); BG CARBOXYHEMOGLOBIN 1.1 % (0.5-1.5); BG DEOXYHEMOGLOBIN 4.6 % (0.0-5.0); BG FRACTION INSPIRED OXYGEN 70; BG HCO3 ACT 23.0 mmol/L (21.0-28.0); BG METHEMOGLOBIN 0.2 % (0.5-1.5); BG OXYGEN SATURATION 95.3 % (94.0-98.0); BG OXYHEMOGLOBIN 94.1 % (94.0-98.0); BG PCO2 39.8 mmHg (32.0-45.0); BG PEEP (cmH2O) 12.0 cmH2O; BG PH 7.379 (7.350-7.450); BG PO2 78.9 mmHg (83.0-108.0); BG SAMPLE SITE ALINE; BG TIDAL VOLUME(mL) 500.0 mL; BG TOTAL HEMOGLOBIN 15.3 g/dL (12.0-16.0); BG VENT MODE VENT - AC/PRVC; BG VENT RATE 20.0 set
[2025-01-17] MEDS: CLONIDINE 0.1MG TABLET NG PRN (22:44)
[2025-01-18] VITALS (118 sets, daily range): BP systolic 100–164; BP diastolic 63–104; PULSE 51–94; RESP 9–26; TEMP 36.6–37.2; O2SAT 91–99
[2025-01-18] MEDS: HYDRALAZINE 20MG/ML VIAL IV NR (02:05)
[2025-01-18 05:39] LABS: BASOPHILS % 0.1 % (0.0-2.0); EOSINOPHILS % 0.1 % (0.0-5.0); HEMATOCRIT. 46.3 % (36.0-48.0); HEMOGLOBIN. 14.6 g/dL (12.0-16.0); LYMPHOCYTES % 8.4 % (20.0-50.0); MEAN PLATELET VOLUME 10.0 fl (7.4-10.4); MONOCYTES % 1.6 % (2.0-8.0); NEUTROPHILS % 89.8 % (40.0-76.0); PLATELET 151 x1000/uL (130-400); RED BLOOD CELL COUNT 5.08 mill/uL (4.2-5.4); RED CELL DISTRIBUTION WIDTH 17.4 % (11.6-14.6)
[2025-01-18 05:57] LABS: CREATININE 4.2 mg/dL (0.6-1.0); TRIGLYCERIDE 229 mg/dL (0-150); UREA NITROGEN BLOOD 77 mg/dL (9-23)
[2025-01-18 05:59] LABS: PHOSPHORUS 6.5 mg/dL (2.5-4.9)
[2025-01-18 08:48] LABS: BG BASE EXCESS -5.1 mmol/L (-2.0-3.0); BG CARBOXYHEMOGLOBIN 0.7 % (0.5-1.5); BG DEOXYHEMOGLOBIN 6.8 % (0.0-5.0); BG FRACTION INSPIRED OXYGEN 40; BG HCO3 ACT 20.0 mmol/L (21.0-28.0); BG METHEMOGLOBIN 0.3 % (0.5-1.5); BG OXYGEN SATURATION 93.1 % (94.0-98.0); BG OXYHEMOGLOBIN 92.2 % (94.0-98.0); BG PCO2 37.6 mmHg (32.0-45.0); BG PEEP (cmH2O) 12.0 cmH2O; BG PH 7.343 (7.350-7.450); BG PO2 71.6 mmHg (83.0-108.0); BG SAMPLE SITE ALINE; BG TIDAL VOLUME(mL) 500.0 mL; BG TOTAL HEMOGLOBIN 15.9 g/dL (12.0-16.0); BG VENT MODE PRVC; BG VENT RATE 20.0 set
[2025-01-18] MEDS: SODIUM BICARBONATE 8.4% 50MEQ/50ML SYR IV ONE (09:16)
[2025-01-18] MEDS: FUROSEMIDE 100MG/10ML VIAL ONE (09:17)
[2025-01-18] MEDS: FENTANYL 2500MCG/250ML PMX 250 ML IV PRN (12:28)
[2025-01-18] MEDS: CALCITRIOL 0.25MCG CAPSULE PO SCH (16:51)
[2025-01-18] MEDS: CALCITRIOL 1 MCG/ML ORAL SYR NG SCH (19:05)
[2025-01-19] VITALS (111 sets, daily range): BP systolic 102–234; BP diastolic 53–131; PULSE 46–130; RESP 5–34; TEMP 36.6696–37.3; O2SAT 90–100
[2025-01-19] MEDS: HYDRALAZINE 20MG/ML VIAL IV PRN (04:13)
[2025-01-19 06:03] LABS: HEMATOCRIT. 46.2 % (36.0-48.0); HEMOGLOBIN. 14.8 g/dL (12.0-16.0); MEAN PLATELET VOLUME 9.2 fl (7.4-10.4); PLATELET 137 x1000/uL (130-400); RED BLOOD CELL COUNT 5.03 mill/uL (4.2-5.4); RED CELL DISTRIBUTION WIDTH 17.5 % (11.6-14.6)
[2025-01-19 06:17] LABS: CREATININE 3.3 mg/dL (0.6-1.0)
[2025-01-19 06:18] LABS: UREA NITROGEN BLOOD 65 mg/dL (9-23)
[2025-01-19 06:20] LABS: PHOSPHORUS 5.7 mg/dL (2.5-4.9)
[2025-01-19 11:44] LABS: BAND% 5.0 % (1.0-6.0); LYMPHOCYTES % MANUAL 10.0 % (20.0-60.0); MONOCYTES % MANUAL 4.0 % (2.0-8.0); NEUTROPHILS % MANUAL 81.0 % (45.0-75.0); PLATELET ESTIMATE NORMAL
[2025-01-20] VITALS (94 sets, daily range): BP systolic 114–203; BP diastolic 61–119; PULSE 62–137; RESP 0–35; TEMP 36.9–38.1; O2SAT 87–99
[2025-01-20 05:31] LABS: CREATININE 2.8 mg/dL (0.6-1.0)
[2025-01-20 05:32] LABS: UREA NITROGEN BLOOD 47 mg/dL (9-23)
[2025-01-20 05:34] LABS: PHOSPHORUS 5.3 mg/dL (2.5-4.9)
[2025-01-20 05:35] LABS: HEMATOCRIT. 48.0 % (36.0-48.0); HEMOGLOBIN. 15.2 g/dL (12.0-16.0); MEAN PLATELET VOLUME 10.5 fl (7.4-10.4); PLATELET 162 x1000/uL (130-400); RED BLOOD CELL COUNT 5.16 mill/uL (4.2-5.4); RED CELL DISTRIBUTION WIDTH 17.7 % (11.6-14.6)
[2025-01-20 09:29] LABS: BG BASE EXCESS -0.6 mmol/L (-2.0-3.0); BG CARBOXYHEMOGLOBIN 1.4 % (0.5-1.5); BG DEOXYHEMOGLOBIN 3.9 % (0.0-5.0); BG FRACTION INSPIRED OXYGEN 40; BG HCO3 ACT 25.3 mmol/L (21.0-28.0); BG METHEMOGLOBIN 0.1 % (0.5-1.5); BG OXYGEN SATURATION 96.0 % (94.0-98.0); BG OXYHEMOGLOBIN 94.6 % (94.0-98.0); BG PCO2 45.8 mmHg (32.0-45.0); BG PEEP (cmH2O) 8.0 cmH2O; BG PH 7.360 (7.350-7.450); BG PO2 85.8 mmHg (83.0-108.0); BG SAMPLE SITE ALINE; BG TIDAL VOLUME(mL) 500.0 mL; BG TOTAL HEMOGLOBIN 16.6 g/dL (12.0-16.0); BG TOTAL RESPIRATORY RATE 24 b/min; BG VENT MODE VENT - SIMV; BG VENT RATE 8.0 set
[2025-01-20 10:03] LABS: BAND% 4.0 % (1.0-6.0); LYMPHOCYTES % MANUAL 1.0 % (20.0-60.0); MONOCYTES % MANUAL 2.0 % (2.0-8.0); NEUTROPHILS % MANUAL 93.0 % (45.0-75.0); PLATELET ESTIMATE NORMAL
[2025-01-20 12:52] LABS: BG BASE EXCESS -0.6 mmol/L (-2.0-3.0); BG CARBOXYHEMOGLOBIN 1.5 % (0.5-1.5); BG DEOXYHEMOGLOBIN 4.7 % (0.0-5.0); BG FRACTION INSPIRED OXYGEN 40; BG HCO3 ACT 25.4 mmol/L (21.0-28.0); BG METHEMOGLOBIN 0.2 % (0.5-1.5); BG OXYGEN SATURATION 95.2 % (94.0-98.0); BG OXYHEMOGLOBIN 93.6 % (94.0-98.0); BG PCO2 46.3 mmHg (32.0-45.0); BG PEEP (cmH2O) 8.0 cmH2O; BG PH 7.357 (7.350-7.450); BG PIP 18.0 cmH2O; BG PO2 79.7 mmHg (83.0-108.0); BG SAMPLE SITE ALINE; BG TOTAL HEMOGLOBIN 16.1 g/dL (12.0-16.0); BG TOTAL RESPIRATORY RATE 33 b/min; BG VENT MODE VENT - CPAP
[2025-01-20] MEDS ORDERED: MORPHINE SULFATE 4 MG/ML INJ (FOR IV/IM USE) IV PRN (17:00)
[2025-01-20] MEDS ORDERED: NALOXONE HCL 0.4MG/ML VIAL IV PRN (17:15)
[2025-01-20] MEDS: ACETAMINOPHEN 650MG/20.3ML UDC PO PRN (18:05)
[2025-01-20] MEDS: MORPHINE SULFATE 4 MG/ML INJ (FOR IV/IM USE) IV PRN (18:06)
[2025-01-21] VITALS (72 sets, daily range): BP systolic 125–172; BP diastolic 64–96; PULSE 106–127; RESP 19–40; TEMP 36.7–38.1; O2SAT 89–97
[2025-01-21 05:11] LABS: HEMATOCRIT. 47.4 % (36.0-48.0); HEMOGLOBIN. 14.8 g/dL (12.0-16.0); MEAN PLATELET VOLUME 10.1 fl (7.4-10.4); PLATELET 196 x1000/uL (130-400); RED BLOOD CELL COUNT 5.20 mill/uL (4.2-5.4); RED CELL DISTRIBUTION WIDTH 17.3 % (11.6-14.6)
[2025-01-21 05:24] LABS: CREATININE 2.5 mg/dL (0.6-1.0)
[2025-01-21 05:25] LABS: UREA NITROGEN BLOOD 48 mg/dL (9-23)
[2025-01-21 05:27] LABS: PHOSPHORUS 3.8 mg/dL (2.5-4.9)
[2025-01-21 12:30] LABS: BAND% 3.0 % (1.0-6.0); LYMPHOCYTES % MANUAL 3.0 % (20.0-60.0); MONOCYTES % MANUAL 2.0 % (2.0-8.0); NEUTROPHILS % MANUAL 92.0 % (45.0-75.0)
[2025-01-21 12:31] LABS: PLATELET ESTIMATE NORMAL
[2025-01-21] MEDS: POTASSIUM CHLORIDE 20MEQ/PACKET PO SCH (14:53)
[2025-01-21] MEDS: METHYLPREDNISOLONE SOD SUCC 40MG/ML (ACT-O-VIAL) IV SCH (23:34)
[2025-01-22] VITALS (16 sets, daily range): BP systolic 142–186; BP diastolic 75–101; PULSE 96–117; RESP 22–41; TEMP 36.7–37.8; O2SAT 86–97
[2025-01-22 06:58] LABS: CREATININE 2.5 mg/dL (0.6-1.0)
[2025-01-22 06:59] LABS: UREA NITROGEN BLOOD 53 mg/dL (9-23)
[2025-01-22 07:01] LABS: PHOSPHORUS 4.2 mg/dL (2.5-4.9)
[2025-01-22] MEDS ORDERED: METF-1150 MT (08:00)
[2025-01-22 12:43] LABS: HEMATOCRIT. 43.1 % (36.0-48.0); HEMOGLOBIN. 13.4 g/dL (12.0-16.0); MEAN PLATELET VOLUME 10.5 fl (7.4-10.4); PLATELET 157 x1000/uL (130-400); RED BLOOD CELL COUNT 4.63 mill/uL (4.2-5.4); RED CELL DISTRIBUTION WIDTH 18.1 % (11.6-14.6)
[2025-01-22] MEDS: POTASSIUM CHLORIDE 20MEQ TABLET SR PO NR (12:51)
[2025-01-22 14:21] LABS: BAND% 1.0 % (1.0-6.0); LYMPHOCYTES % MANUAL 3.0 % (20.0-60.0); NEUTROPHILS % MANUAL 96.0 % (45.0-75.0); PLATELET ESTIMATE NORMAL
[2025-01-23] VITALS (12 sets, daily range): BP systolic 154–175; BP diastolic 80–110; PULSE 89–111; RESP 18–36; TEMP 36.7–37.9; O2SAT 91–95
[2025-01-23] MEDS: AMLODIPINE 10MG TABLET PO NR (06:14)
[2025-01-23 08:24] LABS: HEMATOCRIT. 43.0 % (36.0-48.0); HEMOGLOBIN. 13.6 g/dL (12.0-16.0); MEAN PLATELET VOLUME 9.6 fl (7.4-10.4); PLATELET 141 x1000/uL (130-400); RED BLOOD CELL COUNT 4.69 mill/uL (4.2-5.4); RED CELL DISTRIBUTION WIDTH 17.2 % (11.6-14.6)
[2025-01-23 08:37] LABS: CREATININE 2.1 mg/dL (0.6-1.0); UREA NITROGEN BLOOD 52 mg/dL (9-23)
[2025-01-23 08:39] LABS: PHOSPHORUS 4.0 mg/dL (2.5-4.9)
[2025-01-23] MEDS: POTASSIUM CHLORIDE 20MEQ TABLET SR PO NR (10:13)
[2025-01-23] MEDS: MAGNESIUM 2 G PREMIX 50 ML IV SCH ×2 (13:00→13:01)
[2025-01-23] MEDS ORDERED: IPRATROPIUM/ALBUTEROL 0.5-3(2.5)MG/3ML NEB HHN NR (16:00)
[2025-01-23] MEDS ORDERED: IPRATROPIUM/ALBUTEROL 0.5-3(2.5)MG/3ML NEB HHN PRN (16:15)
[2025-01-23 17:07] LABS: LYMPHOCYTES % MANUAL 6.0 % (20.0-60.0); MONOCYTES % MANUAL 1.0 % (2.0-8.0); NEUTROPHILS % MANUAL 93.0 % (45.0-75.0); PLATELET ESTIMATE NORMAL
[2025-01-23] MEDS: ONDANSETRON HCL 4MG/2ML INJ IV PRN (23:09)
[2025-01-24] VITALS (13 sets, daily range): BP systolic 111–172; BP diastolic 66–106; PULSE 87–112; RESP 21–34; TEMP 36.3–37.4; O2SAT 90–96
[2025-01-24] MEDS: CLONIDINE 0.1MG TABLET PO NR (02:28)
[2025-01-24] MEDS: HYDRALAZINE HCL 25MG TABLET PO SCH (06:35)
[2025-01-24 06:45] LABS: HEMATOCRIT. 44.8 % (36.0-48.0); HEMOGLOBIN. 14.2 g/dL (12.0-16.0); MEAN PLATELET VOLUME 9.9 fl (7.4-10.4); PLATELET 161 x1000/uL (130-400); RED BLOOD CELL COUNT 4.84 mill/uL (4.2-5.4); RED CELL DISTRIBUTION WIDTH 17.6 % (11.6-14.6)
[2025-01-24 06:49] LABS: CREATININE 1.9 mg/dL (0.6-1.0)
[2025-01-24 06:50] LABS: UREA NITROGEN BLOOD 53 mg/dL (9-23)
[2025-01-24 06:51] LABS: PHOSPHORUS 4.9 mg/dL (2.5-4.9)
[2025-01-24 14:15] LABS: LYMPHOCYTES % MANUAL 5.0 % (20.0-60.0); MONOCYTES % MANUAL 2.0 % (2.0-8.0); NEUTROPHILS % MANUAL 93.0 % (45.0-75.0); PLATELET ESTIMATE NORMAL
[2025-01-24] MEDS: ACETAMINOPHEN 325MG TABLET NG PRN (15:36)
[2025-01-24 23:19] LABS: BG SAMPLE SITE LEFT RADIAL
[2025-01-24 23:20] LABS: BG VENT MODE NRB
[2025-01-24 23:21] LABS: BG FRACTION INSPIRED OXYGEN 100; BG HCO3 ACT 29.6 mmol/L (21.0-28.0); BG PCO2 77.6 mmHg (32.0-45.0); BG PH 7.200 (7.350-7.450); BG PO2 109.2 mmHg (83.0-108.0)
[2025-01-24 23:22] LABS: BG BASE EXCESS -0.7 mmol/L (-2.0-3.0); BG CARBOXYHEMOGLOBIN 1.9 % (0.5-1.5); BG TOTAL HEMOGLOBIN 14.7 g/dL (12.0-16.0)
[2025-01-24 23:23] LABS: BG DEOXYHEMOGLOBIN 2.3 % (0.0-5.0); BG METHEMOGLOBIN 0.2 % (0.5-1.5); BG OXYGEN SATURATION 97.0 % (94.0-98.0)
[2025-01-24 23:24] LABS: BG OXYHEMOGLOBIN 97.7 % (94.0-98.0)
[2025-01-25] VITALS (16 sets, daily range): BP systolic 84–169; BP diastolic 56–100; PULSE 93–112; RESP 3–35; TEMP 36.4–37.6; O2SAT 87–96
[2025-01-25 07:00] LABS: HEMATOCRIT. 43.2 % (36.0-48.0); HEMOGLOBIN. 13.4 g/dL (12.0-16.0); MEAN PLATELET VOLUME 10.1 fl (7.4-10.4); PLATELET 130 x1000/uL (130-400); RED BLOOD CELL COUNT 4.64 mill/uL (4.2-5.4); RED CELL DISTRIBUTION WIDTH 17.2 % (11.6-14.6)
[2025-01-25 07:19] LABS: CREATININE 1.8 mg/dL (0.6-1.0)
[2025-01-25 07:20] LABS: UREA NITROGEN BLOOD 52 mg/dL (9-23)
[2025-01-25 07:22] LABS: PHOSPHORUS 4.4 mg/dL (2.5-4.9)
[2025-01-25] MEDS: DIATR MEGLU/DIATRIZOATE SOLN 30ML PO SCH (10:52)
[2025-01-25 16:28] LABS: BAND% 1.0 % (1.0-6.0); LYMPHOCYTES % MANUAL 3.0 % (20.0-60.0); MONOCYTES % MANUAL 3.0 % (2.0-8.0); NEUTROPHILS % MANUAL 93.0 % (45.0-75.0); PLATELET ESTIMATE NORMAL
[2025-01-26] VITALS (18 sets, daily range): BP systolic 116–176; BP diastolic 62–96; PULSE 99–117; RESP 23–36; TEMP 36.8–38.5; O2SAT 90–96
[2025-01-26 16:14] LABS: BG BASE EXCESS 0.3 mmol/L (-2.0-3.0); BG CARBOXYHEMOGLOBIN 1.7 % (0.5-1.5); BG DEOXYHEMOGLOBIN 4.9 % (0.0-5.0); BG FLOW(L/min) 6.00 L/min; BG FRACTION INSPIRED OXYGEN 44; BG HCO3 ACT 27.6 mmol/L (21.0-28.0); BG METHEMOGLOBIN 0.2 % (0.5-1.5); BG OXYGEN SATURATION 95.0 % (94.0-98.0); BG OXYHEMOGLOBIN 93.2 % (94.0-98.0); BG PCO2 55.4 mmHg (32.0-45.0); BG PH 7.315 (7.350-7.450); BG PO2 76.8 mmHg (83.0-108.0); BG SAMPLE SITE RIGHT RADIAL; BG TOTAL HEMOGLOBIN 14.1 g/dL (12.0-16.0); BG VENT MODE NASAL CANNULA
[2025-01-26 19:23] LABS: HEMATOCRIT. 39.0 % (36.0-48.0); HEMOGLOBIN. 12.2 g/dL (12.0-16.0); MEAN PLATELET VOLUME 10.5 fl (7.4-10.4); PLATELET 111 x1000/uL (130-400); RED BLOOD CELL COUNT 4.22 mill/uL (4.2-5.4); RED CELL DISTRIBUTION WIDTH 17.3 % (11.6-14.6)
[2025-01-26 19:39] LABS: CREATININE 1.6 mg/dL (0.6-1.0)
[2025-01-26 19:40] LABS: UREA NITROGEN BLOOD 58 mg/dL (9-23)
[2025-01-26 19:41] LABS: HCG SCREEN NEGATIVE
[2025-01-26 19:42] LABS: PHOSPHORUS 3.6 mg/dL (2.5-4.9)
[2025-01-26 20:38] LABS: LYMPHOCYTES % MANUAL 6.0 % (20.0-60.0); MONOCYTES % MANUAL 4.0 % (2.0-8.0); NEUTROPHILS % MANUAL 90.0 % (45.0-75.0); PLATELET ESTIMATE DECREASED
[2025-01-26] MEDS ORDERED: POTASSIUM CHLORIDE 40 MEQ in DEXT 5% WATER 230 ML IV ONE (21:30)
[2025-01-26] MEDS: MAGNESIUM 2 G PREMIX 50 ML IV NR (21:48)
[2025-01-26] MEDS: PIPERACILLIN/TAZO 3.375G/50ML 50 ML IV SCH (21:48)
[2025-01-26] MEDS: KCL 20MEQ/100ML X 2 FOR TOTAL KCL 40MEQ/200ML IV SCH (21:48)
[2025-01-27] VITALS (20 sets, daily range): BP systolic 129–165; BP diastolic 72–94; PULSE 98–107; RESP 15–34; TEMP 36.5–36.9; O2SAT 93–96
[2025-01-27 05:32] LABS: UREA NITROGEN BLOOD 57 mg/dL (9-23)
[2025-01-27 05:33] LABS: CREATININE 1.6 mg/dL (0.6-1.0)
[2025-01-27 05:34] LABS: ASPARTATE AMINOTRANSFERASE 19 IU/L (<34)
[2025-01-27 05:36] LABS: BILIRUBIN DIRECT 0.3 mg/dL (<=3.0); BILIRUBIN TOTAL 0.6 mg/dL (0.1-1.0); PHOSPHORUS 3.0 mg/dL (2.5-4.9); PROTEIN TOTAL 5.2 g/dL (6.0-8.3)
[2025-01-27 07:12] LABS: HEMATOCRIT. 38.5 % (36.0-48.0); HEMOGLOBIN. 12.1 g/dL (12.0-16.0); MEAN PLATELET VOLUME 10.8 fl (7.4-10.4); PLATELET 117 x1000/uL (130-400); RED BLOOD CELL COUNT 4.13 mill/uL (4.2-5.4); RED CELL DISTRIBUTION WIDTH 17.4 % (11.6-14.6)
[2025-01-27] MEDS: MAGNESIUM 2 G PREMIX 50 ML IV NR (11:01)
[2025-01-27] MEDS: KCL 20MEQ/100ML PREMIX 100 ML IV NR (11:02)
[2025-01-27] MEDS: DEXTROSE 5% WATER 1,000 ML IV SCH (13:07)
[2025-01-27] MEDS: ACETAMINOPHEN 1000MG/100ML 100 ML IV PRN (16:27)
[2025-01-27 17:54] LABS: LYMPHOCYTES % MANUAL 7.0 % (20.0-60.0); MONOCYTES % MANUAL 8.0 % (2.0-8.0); NEUTROPHILS % MANUAL 85.0 % (45.0-75.0); PLATELET ESTIMATE DECREASED
[2025-01-28] VITALS (19 sets, daily range): BP systolic 141–166; BP diastolic 73–98; PULSE 101–108; RESP 25–35; TEMP 37.1–38.3; O2SAT 93–100
[2025-01-28 06:02] LABS: CREATININE 1.3 mg/dL (0.6-1.0); UREA NITROGEN BLOOD 43 mg/dL (9-23)
[2025-01-28 06:04] LABS: PHOSPHORUS 2.5 mg/dL (2.5-4.9)
[2025-01-28 06:29] LABS: HEMATOCRIT. 40.4 % (36.0-48.0); HEMOGLOBIN. 12.6 g/dL (12.0-16.0); MEAN PLATELET VOLUME 10.3 fl (7.4-10.4); PLATELET 104 x1000/uL (130-400); RED BLOOD CELL COUNT 4.37 mill/uL (4.2-5.4); RED CELL DISTRIBUTION WIDTH 17.9 % (11.6-14.6)
[2025-01-28] MEDS: KCL 20MEQ/100ML PREMIX 100 ML IV SCH (07:12)
[2025-01-28] MEDS: MAGNESIUM 4 G PREMIX 100 ML IV NR (10:20)
[2025-01-28] MEDS: ENOXAPARIN 40MG/0.4ML SYR SUBCUT SCH (10:20)
[2025-01-28 17:07] LABS: LYMPHOCYTES % MANUAL 9.0 % (20.0-60.0); MONOCYTES % MANUAL 8.0 % (2.0-8.0); NEUTROPHILS % MANUAL 83.0 % (45.0-75.0); PLATELET ESTIMATE SLIGHTLY DECREASED
[2025-01-28 17:28] LABS: CREATININE 1.2 mg/dL (0.6-1.0)
[2025-01-28 17:30] LABS: UREA NITROGEN BLOOD 35 mg/dL (9-23)
[2025-01-28 17:31] LABS: PHOSPHORUS 2.1 mg/dL (2.5-4.9)
[2025-01-29] VITALS (15 sets, daily range): BP systolic 133–161; BP diastolic 77–105; PULSE 95–108; RESP 22–36; TEMP 36.7–38.8; O2SAT 92–95
[2025-01-29 06:00] LABS: CREATININE 1.1 mg/dL (0.6-1.0); UREA NITROGEN BLOOD 35 mg/dL (9-23)
[2025-01-29 06:02] LABS: PHOSPHORUS 2.1 mg/dL (2.5-4.9)
[2025-01-29 06:24] LABS: BASOPHILS % 0.1 % (0.0-2.0); EOSINOPHILS % 1.6 % (0.0-5.0); HEMATOCRIT. 37.5 % (36.0-48.0); HEMOGLOBIN. 11.8 g/dL (12.0-16.0); LYMPHOCYTES % 7.8 % (20.0-50.0); MEAN PLATELET VOLUME 11.2 fl (7.4-10.4); MONOCYTES % 3.0 % (2.0-8.0); NEUTROPHILS % 87.5 % (40.0-76.0); PLATELET 94 x1000/uL (130-400); RED BLOOD CELL COUNT 4.07 mill/uL (4.2-5.4); RED CELL DISTRIBUTION WIDTH 17.1 % (11.6-14.6)
[2025-01-29] MEDS: KCL 20MEQ/100ML PREMIX 100 ML IV SCH (10:15)
[2025-01-29] MEDS: MAGNESIUM 2 G PREMIX 50 ML IV NR (10:15)
[2025-01-29] MEDS: POTASSIUM PHOSPHATE 30 MMOL in DEXT 5% WATER 490 ML IV NR (14:09)
[2025-01-30] VITALS (38 sets, daily range): BP systolic 106–142; BP diastolic 52–89; PULSE 81–106; RESP 9–35; TEMP 36.1–37.8; O2SAT 89–99
[2025-01-30 11:44] LABS: HEMATOCRIT. 39.5 % (36.0-48.0); HEMOGLOBIN. 12.3 g/dL (12.0-16.0); MEAN PLATELET VOLUME 11.4 fl (7.4-10.4); PLATELET 87 x1000/uL (130-400); RED BLOOD CELL COUNT 4.27 mill/uL (4.2-5.4); RED CELL DISTRIBUTION WIDTH 17.1 % (11.6-14.6)
[2025-01-30 12:07] LABS: CREATININE 1.0 mg/dL (0.6-1.0); UREA NITROGEN BLOOD 21 mg/dL (9-23)
[2025-01-30 12:09] LABS: PHOSPHORUS 3.5 mg/dL (2.5-4.9)
[2025-01-30 12:22] LABS: BG BASE EXCESS -2.6 mmol/L (-2.0-3.0); BG CARBOXYHEMOGLOBIN 2.0 % (0.5-1.5); BG DEOXYHEMOGLOBIN 6.8 % (0.0-5.0); BG FLOW(L/min) 40.00 L/min; BG FRACTION INSPIRED OXYGEN 55; BG HCO3 ACT 27.4 mmol/L (21.0-28.0); BG METHEMOGLOBIN 0.3 % (0.5-1.5); BG OXYGEN SATURATION 93.0 % (94.0-98.0); BG OXYHEMOGLOBIN 90.9 % (94.0-98.0); BG PCO2 74.6 mmHg (32.0-45.0); BG PH 7.183 (7.350-7.450); BG PO2 76.8 mmHg (83.0-108.0); BG SAMPLE SITE RIGHT RADIAL; BG TOTAL HEMOGLOBIN 13.3 g/dL (12.0-16.0); BG VENT MODE NASAL CANNULA
[2025-01-30] MEDS ORDERED: POTASSIUM CHLORIDE 40 MEQ in DEXT 5% WATER 230 ML IV ONE ×2 (12:45→21:00)
[2025-01-30] MEDS: KCL 20MEQ/100ML X 2 FOR TOTAL KCL 40MEQ/200ML IV SCH ×2 (13:03→22:16)
[2025-01-30] MEDS: GUAIFENESIN 600MG ER TABLET PO SCH (13:04)
[2025-01-30] MEDS: MAGNESIUM 2 G PREMIX 50 ML IV SCH (13:04)
[2025-01-30] MEDS: SODIUM CHLORIDE 3% FOR INH 15ML NEB INH NR (15:12)
[2025-01-30 16:11] LABS: EOSINOPHILS % MANUAL 1.0 % (0.0-5.0); LYMPHOCYTES % MANUAL 1.0 % (20.0-60.0); MONOCYTES % MANUAL 2.0 % (2.0-8.0); NEUTROPHILS % MANUAL 96.0 % (45.0-75.0); PLATELET ESTIMATE DECREASED
[2025-01-30 16:53] LABS: BG BASE EXCESS -0.3 mmol/L (-2.0-3.0); BG CARBOXYHEMOGLOBIN 0.8 % (0.5-1.5); BG DEOXYHEMOGLOBIN 0.6 % (0.0-5.0); BG FRACTION INSPIRED OXYGEN 50; BG HCO3 ACT 28.4 mmol/L (21.0-28.0); BG METHEMOGLOBIN 0.3 % (0.5-1.5); BG OXYGEN SATURATION 99.4 % (94.0-98.0); BG OXYHEMOGLOBIN 98.3 % (94.0-98.0); BG PCO2 66.3 mmHg (32.0-45.0); BG PH 7.250 (7.350-7.450); BG PO2 169.4 mmHg (83.0-108.0); BG SAMPLE SITE RIGHT RADIAL; BG TOTAL HEMOGLOBIN 13.0 g/dL (12.0-16.0); BG VENT MODE MASK - BIPAP; BG VENT RATE 22.0 set
[2025-01-30] MEDS ORDERED: IPRATROPIUM/ALBUTEROL 0.5-3(2.5)MG/3ML NEB HHN SCH (18:00)
[2025-01-30 20:26] LABS: BG BASE EXCESS 0.4 mmol/L (-2.0-3.0); BG CARBOXYHEMOGLOBIN 1.4 % (0.5-1.5); BG DEOXYHEMOGLOBIN 4.3 % (0.0-5.0); BG FRACTION INSPIRED OXYGEN 40; BG HCO3 ACT 26.9 mmol/L (21.0-28.0); BG METHEMOGLOBIN 0.3 % (0.5-1.5); BG OXYGEN SATURATION 95.6 % (94.0-98.0); BG OXYHEMOGLOBIN 94.0 % (94.0-98.0); BG PCO2 51.0 mmHg (32.0-45.0); BG PH 7.340 (7.350-7.450); BG PO2 76.7 mmHg (83.0-108.0); BG SAMPLE SITE RIGHT RADIAL; BG TOTAL HEMOGLOBIN 12.7 g/dL (12.0-16.0); BG VENT MODE MASK - BIPAP
[2025-01-30 20:36] LABS: CREATININE 1.0 mg/dL (0.6-1.0); UREA NITROGEN BLOOD 19 mg/dL (9-23)
[2025-01-30 20:38] LABS: PHOSPHORUS 3.8 mg/dL (2.5-4.9)
[2025-01-30] MEDS: IPRATROPIUM/ALBUTEROL 0.5-3(2.5)MG/3ML NEB HHN SCH (20:45)
[2025-01-30] MEDS ORDERED: GUAIFENESIN 600MG ER TABLET PO SCH (21:00)
[2025-01-30 21:49] LABS: PLATELET 85 x1000/uL (130-400); RED BLOOD CELL COUNT 4.19 mill/uL (4.2-5.4); RED CELL DISTRIBUTION WIDTH 17.4 % (11.6-14.6)
[2025-01-30] MEDS: MEROPENEM 1G/100ML 100 ML IV SCH (21:56)
[2025-01-30] MEDS: MAGNESIUM 2 G PREMIX 50 ML IV NR (21:57)
[2025-01-31] VITALS (91 sets, daily range): BP systolic 117–155; BP diastolic 68–94; PULSE 91–107; RESP 18–38; TEMP 36.8–37.3; O2SAT 91–99
[2025-01-31] MEDS: ACETYLCYSTEINE 200MG/ML 20% VIAL 4ML INH SCH (00:29)
[2025-01-31 05:11] LABS: BASOPHILS % 0.4 % (0.0-2.0); EOSINOPHILS % 1.5 % (0.0-5.0); HEMATOCRIT. 38.3 % (36.0-48.0); HEMOGLOBIN. 11.8 g/dL (12.0-16.0); LYMPHOCYTES % 7.5 % (20.0-50.0); MEAN PLATELET VOLUME 10.9 fl (7.4-10.4); MONOCYTES % 3.2 % (2.0-8.0); NEUTROPHILS % 87.4 % (40.0-76.0); PLATELET 85 x1000/uL (130-400); RED BLOOD CELL COUNT 4.12 mill/uL (4.2-5.4); RED CELL DISTRIBUTION WIDTH 17.1 % (11.6-14.6)
[2025-01-31 05:33] LABS: CREATININE 1.0 mg/dL (0.6-1.0)
[2025-01-31 05:34] LABS: UREA NITROGEN BLOOD 20 mg/dL (9-23)
[2025-01-31 05:36] LABS: PHOSPHORUS 3.1 mg/dL (2.5-4.9)
[2025-01-31 08:43] LABS: BG BASE EXCESS -2.1 mmol/L (-2.0-3.0); BG CARBOXYHEMOGLOBIN 0.9 % (0.5-1.5); BG DEOXYHEMOGLOBIN 2.8 % (0.0-5.0); BG FLOW(L/min) 30.00 L/min; BG FRACTION INSPIRED OXYGEN 70; BG HCO3 ACT 24.7 mmol/L (21.0-28.0); BG METHEMOGLOBIN 0.3 % (0.5-1.5); BG OXYGEN SATURATION 97.2 % (94.0-98.0); BG OXYHEMOGLOBIN 96.0 % (94.0-98.0); BG PCO2 50.5 mmHg (32.0-45.0); BG PH 7.307 (7.350-7.450); BG PO2 87.4 mmHg (83.0-108.0); BG SAMPLE SITE RIGHT RADIAL; BG TOTAL HEMOGLOBIN 13.0 g/dL (12.0-16.0); BG VENT MODE HIGH FLOW
[2025-01-31] MEDS ORDERED: POTASSIUM CHLORIDE 40 MEQ in DEXT 5% WATER 230 ML IV ONE (08:45)
[2025-01-31] MEDS: KCL 20MEQ/100ML X 2 FOR TOTAL KCL 40MEQ/200ML IV SCH (09:19)
[2025-01-31] MEDS ORDERED: NALOXONE HCL 0.4MG/ML VIAL IV PRN (20:30)
[2025-01-31] MEDS: HYDROCODONE/ACETAMINOPHEN 5/325MG TABLET PO PRN (22:04)
[2025-02-01] VITALS (58 sets, daily range): BP systolic 101–148; BP diastolic 54–123; PULSE 92–112; RESP 11–34; TEMP 36.9–37.8; O2SAT 86–100
[2025-02-01 05:39] LABS: BASOPHILS % 0.5 % (0.0-2.0); EOSINOPHILS % 2.0 % (0.0-5.0); HEMATOCRIT. 34.8 % (36.0-48.0); HEMOGLOBIN. 11.1 g/dL (12.0-16.0); LYMPHOCYTES % 9.8 % (20.0-50.0); MEAN PLATELET VOLUME 10.6 fl (7.4-10.4); MONOCYTES % 3.6 % (2.0-8.0); NEUTROPHILS % 84.1 % (40.0-76.0); PLATELET 95 x1000/uL (130-400); RED BLOOD CELL COUNT 3.79 mill/uL (4.2-5.4); RED CELL DISTRIBUTION WIDTH 17.4 % (11.6-14.6)
[2025-02-01 05:50] LABS: CREATININE 0.8 mg/dL (0.6-1.0)
[2025-02-01 05:51] LABS: UREA NITROGEN BLOOD 14 mg/dL (9-23)
[2025-02-01 05:53] LABS: PHOSPHORUS 2.4 mg/dL (2.5-4.9)
[2025-02-01] MEDS: MAGNESIUM 4 G PREMIX 100 ML IV NR (09:52)
[2025-02-01] MEDS: INSULIN GLARGINE 100 UNITS/ML SUBCUT SCH (09:53)
[2025-02-01] MEDS: KCL 20MEQ/100ML PREMIX 100 ML IV SCH (09:54)
[2025-02-01 11:10] LABS: BG BASE EXCESS 0.5 mmol/L (-2.0-3.0); BG CARBOXYHEMOGLOBIN 1.2 % (0.5-1.5); BG DEOXYHEMOGLOBIN 4.1 % (0.0-5.0); BG FLOW(L/min) 30.00 L/min; BG FRACTION INSPIRED OXYGEN 70; BG HCO3 ACT 26.5 mmol/L (21.0-28.0); BG METHEMOGLOBIN 0.3 % (0.5-1.5); BG OXYGEN SATURATION 95.8 % (94.0-98.0); BG OXYHEMOGLOBIN 94.4 % (94.0-98.0); BG PCO2 48.5 mmHg (32.0-45.0); BG PH 7.355 (7.350-7.450); BG PO2 76.8 mmHg (83.0-108.0); BG SAMPLE SITE RIGHT RADIAL; BG TOTAL HEMOGLOBIN 12.2 g/dL (12.0-16.0); BG VENT MODE HIGH FLOW
[2025-02-01 11:35] LABS: INR 1.1
[2025-02-01] MEDS: POTASSIUM PHOSPHATE 15 MMOL in DEXT 5% WATER 245 ML IV NR (12:04)
[2025-02-01] MEDS: IPRATROPIUM/ALBUTEROL 0.5-3(2.5)MG/3ML NEB HHN SCH (12:33)
[2025-02-01] MEDS: HYDROCODONE/ACETAMINOPHEN 5/325MG TABLET PO PRN (16:42)
[2025-02-01 16:47] LABS: PROTEIN BODY FLUID 2.3 gm/dL
[2025-02-01 18:45] LABS: BODY FLUID MONOCYTES 4 %; BODY FLUID RBC 12625 /cu mm (0-2000); BODY FLUID WBC 2435 /cu mm (0-200)
[2025-02-01] MEDS: ACETAMINOPHEN 1000MG/100ML 100 ML IV PRN (22:11)
[2025-02-02] VITALS (16 sets, daily range): BP systolic 119–144; BP diastolic 73–86; PULSE 79–103; RESP 10–30; TEMP 37.1–37.8; O2SAT 95–99
[2025-02-02 09:34] LABS: BG BASE EXCESS 2.3 mmol/L (-2.0-3.0); BG CARBOXYHEMOGLOBIN 0.7 % (0.5-1.5); BG DEOXYHEMOGLOBIN 2.7 % (0.0-5.0); BG FLOW(L/min) 30.00 L/min; BG FRACTION INSPIRED OXYGEN 70; BG HCO3 ACT 27.6 mmol/L (21.0-28.0); BG METHEMOGLOBIN 0.3 % (0.5-1.5); BG OXYGEN SATURATION 97.3 % (94.0-98.0); BG OXYHEMOGLOBIN 96.3 % (94.0-98.0); BG PCO2 45.8 mmHg (32.0-45.0); BG PH 7.398 (7.350-7.450); BG PO2 88.1 mmHg (83.0-108.0); BG SAMPLE SITE RIGHT RADIAL; BG TOTAL HEMOGLOBIN 12.0 g/dL (12.0-16.0); BG VENT MODE HIGH FLOW
[2025-02-02 09:40] LABS: BASOPHILS % 0.6 % (0.0-2.0); EOSINOPHILS % 2.1 % (0.0-5.0); HEMATOCRIT. 33.9 % (36.0-48.0); HEMOGLOBIN. 11.0 g/dL (12.0-16.0); LYMPHOCYTES % 12.4 % (20.0-50.0); MEAN PLATELET VOLUME 9.9 fl (7.4-10.4); MONOCYTES % 5.1 % (2.0-8.0); NEUTROPHILS % 79.8 % (40.0-76.0); PLATELET 101 x1000/uL (130-400); RED BLOOD CELL COUNT 3.73 mill/uL (4.2-5.4); RED CELL DISTRIBUTION WIDTH 16.9 % (11.6-14.6)
[2025-02-02 09:54] LABS: CREATININE 0.7 mg/dL (0.6-1.0); UREA NITROGEN BLOOD 13 mg/dL (9-23)
[2025-02-02 09:56] LABS: PHOSPHORUS 2.5 mg/dL (2.5-4.9)
[2025-02-02] MEDS ORDERED: POTASSIUM CHLORIDE 20 MEQ in DEXT 5% WATER 90 ML IV ONE (10:30)
[2025-02-02] MEDS ORDERED: KCL 20MEQ/100ML PREMIX 100 ML IV NR (11:00)
[2025-02-02] MEDS: MAGNESIUM 2 G PREMIX 50 ML IV NR (12:38)
[2025-02-02 14:04] LABS: LACTATE DEHYDROGENASE 308.0 IU/L (120-246)
[2025-02-02 14:05] LABS: PROTEIN TOTAL 4.8 g/dL (6.0-8.3)
[2025-02-02] MEDS: KCL 20MEQ/100ML PREMIX 100 ML IV NR (14:21)
[2025-02-02] MEDS ORDERED: ACETAMINOPHEN 1000MG/100ML 100 ML IV SCH (16:00)
[2025-02-02] MEDS: ACETAMINOPHEN 1000MG/100ML 100 ML IV SCH (17:54)
[2025-02-02] MEDS: INSULIN LISPRO 100 UNITS/ML SUBCUT SCH (17:56)
[2025-02-03] VITALS (14 sets, daily range): BP systolic 117–135; BP diastolic 71–101; PULSE 95–107; RESP 18–33; TEMP 36.3–37.5; O2SAT 94–99
[2025-02-03 06:32] LABS: BASOPHILS % 0.5 % (0.0-2.0); EOSINOPHILS % 2.8 % (0.0-5.0); HEMATOCRIT. 34.6 % (36.0-48.0); HEMOGLOBIN. 10.9 g/dL (12.0-16.0); LYMPHOCYTES % 17.3 % (20.0-50.0); MEAN PLATELET VOLUME 10.4 fl (7.4-10.4); MONOCYTES % 6.2 % (2.0-8.0); NEUTROPHILS % 73.2 % (40.0-76.0); PLATELET 118 x1000/uL (130-400); RED BLOOD CELL COUNT 3.77 mill/uL (4.2-5.4); RED CELL DISTRIBUTION WIDTH 16.8 % (11.6-14.6)
[2025-02-03 06:48] LABS: CREATININE 0.7 mg/dL (0.6-1.0)
[2025-02-03 06:49] LABS: UREA NITROGEN BLOOD 12 mg/dL (9-23)
[2025-02-03] MEDS: GUAIFENESIN-DM 200MG-20MG/10ML UDC PO PRN (09:20)
[2025-02-04] VITALS (17 sets, daily range): BP systolic 103–152; BP diastolic 67–92; PULSE 96–113; RESP 18–34; TEMP 36.2–36.5; O2SAT 88–98
[2025-02-05] VITALS (15 sets, daily range): BP systolic 121–146; BP diastolic 78–98; PULSE 100–114; RESP 0–34; TEMP 36.6–36.9; O2SAT 79–97
[2025-02-05] MEDS ORDERED: INSULIN LISPRO 100 UNITS/ML SUBCUT SCH (17:30)
[2025-02-05] MEDS: FUROSEMIDE 100MG/10ML VIAL IVP SCH (18:09)
[2025-02-05] MEDS: HYDROCODONE/ACETAMINOPHEN 5/325MG TABLET PO PRN (18:11)
[2025-02-06] VITALS (16 sets, daily range): BP systolic 113–152; BP diastolic 82–101; PULSE 97–116; RESP 10–35; TEMP 36.9–37.9; O2SAT 89–97
[2025-02-06 06:57] LABS: BASOPHILS % 0.4 % (0.0-2.0); EOSINOPHILS % 2.8 % (0.0-5.0); HEMATOCRIT. 30.4 % (36.0-48.0); HEMOGLOBIN. 9.8 g/dL (12.0-16.0); LYMPHOCYTES % 28.1 % (20.0-50.0); MEAN PLATELET VOLUME 9.0 fl (7.4-10.4); MONOCYTES % 7.5 % (2.0-8.0); NEUTROPHILS % 61.2 % (40.0-76.0); PLATELET 197 x1000/uL (130-400); RED BLOOD CELL COUNT 3.35 mill/uL (4.2-5.4); RED CELL DISTRIBUTION WIDTH 16.9 % (11.6-14.6)
[2025-02-06 07:09] LABS: CREATININE 0.6 mg/dL (0.6-1.0)
[2025-02-06 07:10] LABS: UREA NITROGEN BLOOD 11 mg/dL (9-23)
[2025-02-06 07:12] LABS: PHOSPHORUS 3.4 mg/dL (2.5-4.9)
[2025-02-06] MEDS: INSULIN GLARGINE 100 UNITS/ML SUBCUT SCH (09:56)
[2025-02-06 10:24] LABS: BG BASE EXCESS 11.9 mmol/L (-2.0-3.0); BG CARBOXYHEMOGLOBIN 1.2 % (0.5-1.5); BG DEOXYHEMOGLOBIN 2.9 % (0.0-5.0); BG FLOW(L/min) 30.00 L/min; BG FRACTION INSPIRED OXYGEN 60; BG HCO3 ACT 38.2 mmol/L (21.0-28.0); BG METHEMOGLOBIN 0.3 % (0.5-1.5); BG OXYGEN SATURATION 97.1 % (94.0-98.0); BG OXYHEMOGLOBIN 95.6 % (94.0-98.0); BG PCO2 58.4 mmHg (32.0-45.0); BG PH 7.434 (7.350-7.450); BG PO2 89.0 mmHg (83.0-108.0); BG SAMPLE SITE RIGHT RADIAL; BG TOTAL HEMOGLOBIN 12.0 g/dL (12.0-16.0); BG VENT MODE HIGH FLOW
[2025-02-06] MEDS: MAGNESIUM 2 G PREMIX 50 ML IV NR ×2 (12:57→23:52)
[2025-02-06] MEDS: FUROSEMIDE 40MG/4ML VIAL IVP SCH (17:31)
[2025-02-07] VITALS (17 sets, daily range): BP systolic 111–131; BP diastolic 75–93; PULSE 97–116; RESP 0–37; TEMP 36.7–37.4; O2SAT 90–96
[2025-02-07 05:36] LABS: HEMATOCRIT. 29.9 % (36.0-48.0); HEMOGLOBIN. 9.6 g/dL (12.0-16.0); MEAN PLATELET VOLUME 8.7 fl (7.4-10.4); PLATELET 218 x1000/uL (130-400); RED BLOOD CELL COUNT 3.29 mill/uL (4.2-5.4); RED CELL DISTRIBUTION WIDTH 16.8 % (11.6-14.6)
[2025-02-07 05:55] LABS: CREATININE 0.5 mg/dL (0.6-1.0)
[2025-02-07 05:56] LABS: UREA NITROGEN BLOOD 10 mg/dL (9-23)
[2025-02-07 05:58] LABS: PHOSPHORUS 4.3 mg/dL (2.5-4.9)
[2025-02-07 08:47] LABS: BG BASE EXCESS 11.9 mmol/L (-2.0-3.0); BG CARBOXYHEMOGLOBIN 1.0 % (0.5-1.5); BG DEOXYHEMOGLOBIN 3.7 % (0.0-5.0); BG FLOW(L/min) 30.00 L/min; BG FRACTION INSPIRED OXYGEN 55; BG HCO3 ACT 38.4 mmol/L (21.0-28.0); BG METHEMOGLOBIN 0.3 % (0.5-1.5); BG OXYGEN SATURATION 96.3 % (94.0-98.0); BG OXYHEMOGLOBIN 95.0 % (94.0-98.0); BG PCO2 60.2 mmHg (32.0-45.0); BG PH 7.423 (7.350-7.450); BG PO2 86.3 mmHg (83.0-108.0); BG SAMPLE SITE LEFT BRACHIAL; BG TOTAL HEMOGLOBIN 11.4 g/dL (12.0-16.0); BG VENT MODE HIGH FLOW
[2025-02-07] MEDS ORDERED: MAGNESIUM 4 G PREMIX 100 ML IV ONE (12:00)
[2025-02-07] MEDS: MAGNESIUM 4 G PREMIX 100 ML IV NR (12:05)
[2025-02-07 12:38] LABS: BAND% 3.0 % (1.0-6.0); EOSINOPHILS % MANUAL 3.0 % (0.0-5.0); LYMPHOCYTES % MANUAL 33.0 % (20.0-60.0); MONOCYTES % MANUAL 10.0 % (2.0-8.0); NEUTROPHILS % MANUAL 51.0 % (45.0-75.0); PLATELET ESTIMATE NORMAL
[2025-02-07] MEDS ORDERED: LIDOCAINE HCL 1% 10 MG/ML 10ML VIAL ONE (13:30)
[2025-02-07] MEDS: CARVEDILOL 3.125 MG TABLET PO SCH (21:21)
[2025-02-08] VITALS (15 sets, daily range): BP systolic 99–144; BP diastolic 68–98; PULSE 95–112; RESP 13–39; TEMP 36.4–37.4; O2SAT 74–98
[2025-02-08 08:35] LABS: HEMATOCRIT. 30.3 % (36.0-48.0); HEMOGLOBIN. 9.7 g/dL (12.0-16.0); MEAN PLATELET VOLUME 8.4 fl (7.4-10.4); PLATELET 262 x1000/uL (130-400); RED BLOOD CELL COUNT 3.33 mill/uL (4.2-5.4); RED CELL DISTRIBUTION WIDTH 17.3 % (11.6-14.6)
[2025-02-08 08:52] LABS: CREATININE 0.5 mg/dL (0.6-1.0); UREA NITROGEN BLOOD 8 mg/dL (9-23)
[2025-02-08 08:54] LABS: ASPARTATE AMINOTRANSFERASE 25 IU/L (<34); BILIRUBIN DIRECT 0.1 mg/dL (<=3.0); BILIRUBIN TOTAL 0.3 mg/dL (0.1-1.0); PHOSPHORUS 4.6 mg/dL (2.5-4.9); PROTEIN TOTAL 5.4 g/dL (6.0-8.3)
[2025-02-08 14:13] LABS: BG BASE EXCESS 13.1 mmol/L (-2.0-3.0); BG CARBOXYHEMOGLOBIN 1.6 % (0.5-1.5); BG DEOXYHEMOGLOBIN 8.0 % (0.0-5.0); BG FLOW(L/min) 30.00 L/min; BG FRACTION INSPIRED OXYGEN 55; BG HCO3 ACT 40.1 mmol/L (21.0-28.0); BG METHEMOGLOBIN 0.3 % (0.5-1.5); BG OXYGEN SATURATION 91.8 % (94.0-98.0); BG OXYHEMOGLOBIN 90.1 % (94.0-98.0); BG PCO2 64.6 mmHg (32.0-45.0); BG PH 7.411 (7.350-7.450); BG PO2 65.0 mmHg (83.0-108.0); BG SAMPLE SITE RIGHT RADIAL; BG TOTAL HEMOGLOBIN 11.6 g/dL (12.0-16.0); BG VENT MODE HIGH FLOW
[2025-02-08] MEDS: FUROSEMIDE 100MG/10ML VIAL IVP SCH (17:26)
[2025-02-08 18:11] LABS: EOSINOPHILS % MANUAL 5.0 % (0.0-5.0); LYMPHOCYTES % MANUAL 27.0 % (20.0-60.0); MONOCYTES % MANUAL 9.0 % (2.0-8.0); NEUTROPHILS % MANUAL 59.0 % (45.0-75.0); PLATELET ESTIMATE NORMAL
[2025-02-09] VITALS (18 sets, daily range): BP systolic 104–138; BP diastolic 71–90; PULSE 93–103; RESP 14–38; TEMP 36.3–37.6; O2SAT 87–94
[2025-02-09 13:11] LABS: BASOPHILS % 0.3 % (0.0-2.0); EOSINOPHILS % 6.2 % (0.0-5.0); HEMATOCRIT. 31.1 % (36.0-48.0); HEMOGLOBIN. 9.8 g/dL (12.0-16.0); LYMPHOCYTES % 30.5 % (20.0-50.0); MEAN PLATELET VOLUME 8.4 fl (7.4-10.4); MONOCYTES % 7.5 % (2.0-8.0); NEUTROPHILS % 55.5 % (40.0-76.0); PLATELET 313 x1000/uL (130-400); RED BLOOD CELL COUNT 3.42 mill/uL (4.2-5.4); RED CELL DISTRIBUTION WIDTH 17.1 % (11.6-14.6)
[2025-02-09 13:25] LABS: CREATININE 0.7 mg/dL (0.6-1.0); UREA NITROGEN BLOOD 12 mg/dL (9-23)
[2025-02-09 13:27] LABS: PHOSPHORUS 4.5 mg/dL (2.5-4.9)
[2025-02-09] MEDS: MAGNESIUM 4 G PREMIX 100 ML IV SCH (15:03)
[2025-02-09] MEDS: FUROSEMIDE 40MG/4ML VIAL IVP SCH (22:05)
[2025-02-10] VITALS (20 sets, daily range): BP systolic 92–121; BP diastolic 52–89; PULSE 85–106; RESP 9–32; TEMP 36.8–37.5; O2SAT 64–96
[2025-02-10 04:56] LABS: CREATININE 0.9 mg/dL (0.6-1.0); UREA NITROGEN BLOOD 14 mg/dL (9-23)
[2025-02-10 04:58] LABS: PHOSPHORUS 5.2 mg/dL (2.5-4.9)
[2025-02-10] MEDS ORDERED: LIDOCAINE HCL/PF 1% 2ML VIAL ONE (05:00)
[2025-02-10 06:59] LABS: BASOPHILS % 0.7 % (0.0-2.0); EOSINOPHILS % 7.1 % (0.0-5.0); HEMATOCRIT. 28.9 % (36.0-48.0); HEMOGLOBIN. 9.2 g/dL (12.0-16.0); LYMPHOCYTES % 34.2 % (20.0-50.0); MEAN PLATELET VOLUME 9.8 fl (7.4-10.4); MONOCYTES % 5.7 % (2.0-8.0); NEUTROPHILS % 52.3 % (40.0-76.0); PLATELET 163 x1000/uL (130-400); RED BLOOD CELL COUNT 3.14 mill/uL (4.2-5.4); RED CELL DISTRIBUTION WIDTH 16.7 % (11.6-14.6)
[2025-02-10 10:09] LABS: BG BASE EXCESS 13.8 mmol/L (-2.0-3.0); BG CARBOXYHEMOGLOBIN 0.6 % (0.5-1.5); BG DEOXYHEMOGLOBIN 6.8 % (0.0-5.0); BG FLOW(L/min) 40.00 L/min; BG FRACTION INSPIRED OXYGEN 80; BG HCO3 ACT 41.1 mmol/L (21.0-28.0); BG METHEMOGLOBIN 0.3 % (0.5-1.5); BG OXYGEN SATURATION 93.1 % (94.0-98.0); BG OXYHEMOGLOBIN 92.3 % (94.0-98.0); BG PCO2 68.4 mmHg (32.0-45.0); BG PH 7.397 (7.350-7.450); BG PO2 71.7 mmHg (83.0-108.0); BG SAMPLE SITE RIGHT RADIAL; BG TOTAL HEMOGLOBIN 11.0 g/dL (12.0-16.0); BG VENT MODE HIGH FLOW
[2025-02-10] MEDS ORDERED: SODIUM PHOSPHATE 15 MMOL in DEXT 5% WATER 245 ML IV ONE (10:45)
[2025-02-10] MEDS: MAGNESIUM 2 G PREMIX 50 ML IV SCH (11:24)
[2025-02-10] MEDS ORDERED: DEXTROSE 50% WATER 50ML SYRINGE IV PRN (14:15)
[2025-02-10] MEDS: BLOOD SUGAR DIAGNOSTIC STRIP TEST SCH (17:56)
[2025-02-10] MEDS: INSULIN LISPRO 100 UNITS/ML SUBCUT SCH (18:35)
[2025-02-10] MEDS: TERBUTALINE SULFATE 1MG/ML VIAL SUBCUT NR (18:43)
[2025-02-11] VITALS (15 sets, daily range): BP systolic 113–157; BP diastolic 67–92; PULSE 100–112; RESP 0–35; TEMP 36.6–37.9; O2SAT 88–94
[2025-02-11] MEDS: ACETAMINOPHEN 650MG SUPP PR PRN (06:52)
[2025-02-11 07:13] LABS: HEMATOCRIT. 28.6 % (36.0-48.0); HEMOGLOBIN. 9.2 g/dL (12.0-16.0); MEAN PLATELET VOLUME 8.4 fl (7.4-10.4); PLATELET 345 x1000/uL (130-400); RED BLOOD CELL COUNT 3.13 mill/uL (4.2-5.4); RED CELL DISTRIBUTION WIDTH 16.6 % (11.6-14.6)
[2025-02-11 07:24] LABS: CREATININE 0.8 mg/dL (0.6-1.0)
[2025-02-11 07:26] LABS: UREA NITROGEN BLOOD 13 mg/dL (9-23)
[2025-02-11 07:28] LABS: PHOSPHORUS 5.2 mg/dL (2.5-4.9)
[2025-02-11] MEDS ORDERED: LIDOCAINE HCL/PF 1% 2ML VIAL ONE (10:53)
[2025-02-11 11:33] LABS: BG BASE EXCESS 12.7 mmol/L (-2.0-3.0); BG CARBOXYHEMOGLOBIN 0.7 % (0.5-1.5); BG DEOXYHEMOGLOBIN 9.5 % (0.0-5.0); BG FLOW(L/min) 40.00 L/min; BG FRACTION INSPIRED OXYGEN 80; BG HCO3 ACT 39.5 mmol/L (21.0-28.0); BG METHEMOGLOBIN 0.3 % (0.5-1.5); BG OXYGEN SATURATION 90.4 % (94.0-98.0); BG OXYHEMOGLOBIN 89.5 % (94.0-98.0); BG PCO2 65.4 mmHg (32.0-45.0); BG PH 7.399 (7.350-7.450); BG PO2 63.0 mmHg (83.0-108.0); BG SAMPLE SITE LEFT RADIAL; BG TOTAL HEMOGLOBIN 9.8 g/dL (12.0-16.0); BG VENT MODE HIGH FLOW
[2025-02-11 13:11] LABS: COMPLEMENT C3 208 mg/dL (82-167); COMPLEMENT C4 27 mg/dL (12-38)
[2025-02-11] MEDS: ACETAZOLAMIDE 250MG TABLET PO SCH (13:16)
[2025-02-11 16:07] LABS: EOSINOPHILS % MANUAL 4.0 % (0.0-5.0); LYMPHOCYTES % MANUAL 24.0 % (20.0-60.0); METAMYELOCYTES % 2.0 % (0-0); MONOCYTES % MANUAL 7.0 % (2.0-8.0); MYELOCYTES % 2.0 % (0-0); NEUTROPHILS % MANUAL 61.0 % (45.0-75.0)
[2025-02-11 16:08] LABS: PLATELET ESTIMATE NORMAL
[2025-02-11] MEDS: MELATONIN 3MG TABLET PO SCH (21:21)
[2025-02-11] MEDS: ACETAMINOPHEN 325MG TABLET PO PRN (23:49)
[2025-02-12] VITALS (15 sets, daily range): BP systolic 105–132; BP diastolic 66–98; PULSE 91–102; RESP 14–34; TEMP 36.7–36.9; O2SAT 86–96
[2025-02-12 07:45] LABS: BASOPHILS % 0.8 % (0.0-2.0); EOSINOPHILS % 8.3 % (0.0-5.0); HEMATOCRIT. 29.9 % (36.0-48.0); HEMOGLOBIN. 9.6 g/dL (12.0-16.0); LYMPHOCYTES % 25.1 % (20.0-50.0); MEAN PLATELET VOLUME 8.7 fl (7.4-10.4); MONOCYTES % 5.3 % (2.0-8.0); NEUTROPHILS % 60.5 % (40.0-76.0); PLATELET 362 x1000/uL (130-400); RED BLOOD CELL COUNT 3.27 mill/uL (4.2-5.4); RED CELL DISTRIBUTION WIDTH 16.6 % (11.6-14.6)
[2025-02-12 08:10] LABS: CREATININE 0.8 mg/dL (0.6-1.0)
[2025-02-12 08:11] LABS: UREA NITROGEN BLOOD 14 mg/dL (9-23)
[2025-02-12 08:13] LABS: PHOSPHORUS 5.7 mg/dL (2.5-4.9)
[2025-02-12] MEDS: SODIUM BICARBONATE 4.2% 2.5MEQ/5ML VIAL IV ONE (08:30)
[2025-02-12] MEDS: LIDOCAINE HCL 1% 10 MG/ML 10ML VIAL ONE (08:30)
[2025-02-12] MEDS: MAGNESIUM 2 G PREMIX 50 ML IV NR (09:21)
[2025-02-12] MEDS: MAGNESIUM 4 G PREMIX 100 ML IV NR (15:50)
[2025-02-12] MEDS: ACETAMINOPHEN WITH CODEINE 300/30MG TABLET PO PRN (20:41)
[2025-02-12] MEDS: MELATONIN 3MG TABLET PO PRN (20:41)
[2025-02-13] VITALS (18 sets, daily range): BP systolic 107–140; BP diastolic 67–110; PULSE 94–106; RESP 15–32; TEMP 36.5–37.1; O2SAT 89–98
[2025-02-13] MEDS: ZOLPIDEM TARTRATE 5MG TABLET PO NR (00:52)
[2025-02-13 05:37] LABS: BASOPHILS % 0.9 % (0.0-2.0); EOSINOPHILS % 8.7 % (0.0-5.0); HEMATOCRIT. 30.9 % (36.0-48.0); HEMOGLOBIN. 9.8 g/dL (12.0-16.0); LYMPHOCYTES % 25.7 % (20.0-50.0); MEAN PLATELET VOLUME 8.9 fl (7.4-10.4); MONOCYTES % 4.9 % (2.0-8.0); NEUTROPHILS % 59.8 % (40.0-76.0); PLATELET 344 x1000/uL (130-400); RED BLOOD CELL COUNT 3.37 mill/uL (4.2-5.4); RED CELL DISTRIBUTION WIDTH 16.5 % (11.6-14.6)
[2025-02-13 06:20] LABS: CREATININE 0.7 mg/dL (0.6-1.0)
[2025-02-13 06:21] LABS: UREA NITROGEN BLOOD 12 mg/dL (9-23)
[2025-02-13 06:23] LABS: PHOSPHORUS 5.5 mg/dL (2.5-4.9)
[2025-02-13] MEDS ORDERED: ONDANSETRON 4MG ODT PO PRN (09:30)
[2025-02-13] MEDS: PANTOPRAZOLE 40MG DR TABLET PO SCH (13:02)
[2025-02-13] MEDS: MAGNESIUM 2 G PREMIX 50 ML IV SCH (13:03)
[2025-02-13 13:06] LABS: BG BASE EXCESS 10.2 mmol/L (-2.0-3.0); BG CARBOXYHEMOGLOBIN 0.3 % (0.5-1.5); BG DEOXYHEMOGLOBIN 5.4 % (0.0-5.0); BG FLOW(L/min) 40.00 L/min; BG FRACTION INSPIRED OXYGEN 80; BG HCO3 ACT 38.2 mmol/L (21.0-28.0); BG METHEMOGLOBIN 0.3 % (0.5-1.5); BG OXYGEN SATURATION 94.6 % (94.0-98.0); BG OXYHEMOGLOBIN 94.0 % (94.0-98.0); BG PCO2 73.0 mmHg (32.0-45.0); BG PH 7.337 (7.350-7.450); BG PO2 79.6 mmHg (83.0-108.0); BG SAMPLE SITE RIGHT RADIAL; BG TOTAL HEMOGLOBIN 10.7 g/dL (12.0-16.0); BG VENT MODE HIGH FLOW
[2025-02-13 15:10] LABS: ATYPICAL P-ANCA <1:20 titer (Neg:<1:20); CYTOPLASMIC C-ANCA <1:20 titer (Neg:<1:20); PERINUCLEAR P-ANCA <1:20 titer (Neg:<1:20)
[2025-02-13 17:12] LABS: ANTI-MYELOPEROXIDASE AB < 0.2 units (0.0-0.9); ANTI-PROTEINASE 3 ABS < 0.2 units (0.0-0.9); GLOMERULAR BASEMENT MEMB AB < 0 units (0.0-0.9)
[2025-02-13] MEDS: INSULIN GLARGINE 100 UNITS/ML SUBCUT SCH (17:51)
[2025-02-13] MEDS ORDERED: INSULIN GLARGINE 100 UNITS/ML SUBCUT SCH (22:00)
[2025-02-14] VITALS (16 sets, daily range): BP systolic 80–125; BP diastolic 55–88; PULSE 99–113; RESP 17–32; TEMP 36.4–37.3; O2SAT 89–95
[2025-02-14 07:43] LABS: HEMATOCRIT. 27.1 % (36.0-48.0); HEMOGLOBIN. 8.8 g/dL (12.0-16.0); MEAN PLATELET VOLUME 9.1 fl (7.4-10.4); PLATELET 334 x1000/uL (130-400); RED BLOOD CELL COUNT 2.96 mill/uL (4.2-5.4); RED CELL DISTRIBUTION WIDTH 16.7 % (11.6-14.6)
[2025-02-14 07:58] LABS: CREATININE 0.7 mg/dL (0.6-1.0); UREA NITROGEN BLOOD 11 mg/dL (9-23)
[2025-02-14 08:00] LABS: ASPARTATE AMINOTRANSFERASE 32 IU/L (<34); BILIRUBIN TOTAL 0.2 mg/dL (0.1-1.0); PHOSPHORUS 6.1 mg/dL (2.5-4.9); PROTEIN TOTAL 5.8 g/dL (6.0-8.3)
[2025-02-14] MEDS: ACETAZOLAMIDE 250MG TABLET PO SCH (08:19)
[2025-02-14] MEDS: MAGNESIUM 2 G PREMIX 50 ML IV NR (11:15)
[2025-02-14 11:36] LABS: BG BASE EXCESS 8.8 mmol/L (-2.0-3.0); BG CARBOXYHEMOGLOBIN 0.7 % (0.5-1.5); BG DEOXYHEMOGLOBIN 6.0 % (0.0-5.0); BG FLOW(L/min) 40.00 L/min; BG FRACTION INSPIRED OXYGEN 80; BG HCO3 ACT 36.7 mmol/L (21.0-28.0); BG METHEMOGLOBIN 0.3 % (0.5-1.5); BG OXYGEN SATURATION 93.9 % (94.0-98.0); BG OXYHEMOGLOBIN 93.0 % (94.0-98.0); BG PCO2 71.7 mmHg (32.0-45.0); BG PH 7.327 (7.350-7.450); BG PO2 76.2 mmHg (83.0-108.0); BG SAMPLE SITE RIGHT RADIAL; BG TOTAL HEMOGLOBIN 10.4 g/dL (12.0-16.0); BG VENT MODE HIGH FLOW
[2025-02-14 11:41] LABS: BAND% 11.0 % (1.0-6.0); EOSINOPHILS % MANUAL 12.0 % (0.0-5.0); LYMPHOCYTES % MANUAL 30.0 % (20.0-60.0); MONOCYTES % MANUAL 5.0 % (2.0-8.0); NEUTROPHILS % MANUAL 42.0 % (45.0-75.0); PLATELET ESTIMATE NORMAL
[2025-02-15] VITALS (14 sets, daily range): BP systolic 99–130; BP diastolic 76–99; PULSE 96–109; RESP 17–38; TEMP 36.4–37.4; O2SAT 89–94
[2025-02-15 07:31] LABS: BASOPHILS % 0.7 % (0.0-2.0); EOSINOPHILS % 6.5 % (0.0-5.0); HEMATOCRIT. 30.7 % (36.0-48.0); HEMOGLOBIN. 9.8 g/dL (12.0-16.0); LYMPHOCYTES % 25.7 % (20.0-50.0); MEAN PLATELET VOLUME 8.9 fl (7.4-10.4); MONOCYTES % 4.3 % (2.0-8.0); NEUTROPHILS % 62.8 % (40.0-76.0); PLATELET 333 x1000/uL (130-400); RED BLOOD CELL COUNT 3.36 mill/uL (4.2-5.4); RED CELL DISTRIBUTION WIDTH 16.8 % (11.6-14.6)
[2025-02-15 07:39] LABS: CREATININE 0.7 mg/dL (0.6-1.0); UREA NITROGEN BLOOD 12 mg/dL (9-23)
[2025-02-15 07:41] LABS: PHOSPHORUS 6.2 mg/dL (2.5-4.9)
[2025-02-15] MEDS: FUROSEMIDE 40MG/4ML VIAL IVP SCH (08:47)
[2025-02-15] MEDS: MAGNESIUM OXIDE 400MG TABLET PO SCH (12:29)
[2025-02-15] MEDS: MAGNESIUM 2 G PREMIX 50 ML IV SCH (14:28)
[2025-02-15] MEDS ORDERED: NALOXONE HCL 0.4MG/ML VIAL IV PRN (17:30)
[2025-02-15] MEDS: FUROSEMIDE 100MG/10ML VIAL IVP SCH (17:36)
[2025-02-16] VITALS (15 sets, daily range): BP systolic 99–128; BP diastolic 71–88; PULSE 94–105; RESP 15–28; TEMP 36.7–36.9; O2SAT 92–96
[2025-02-16 06:20] LABS: CREATININE 0.9 mg/dL (0.6-1.0); UREA NITROGEN BLOOD 14 mg/dL (9-23)
[2025-02-16 06:22] LABS: PHOSPHORUS 7.9 mg/dL (2.5-4.9)
[2025-02-16 06:24] LABS: HEMATOCRIT. 29.2 % (36.0-48.0); HEMOGLOBIN. 9.3 g/dL (12.0-16.0); MEAN PLATELET VOLUME 9.0 fl (7.4-10.4); PLATELET 309 x1000/uL (130-400); RED BLOOD CELL COUNT 3.17 mill/uL (4.2-5.4); RED CELL DISTRIBUTION WIDTH 16.9 % (11.6-14.6)
[2025-02-16] MEDS: MAGNESIUM 2 G PREMIX 50 ML IV NR (11:00)
[2025-02-16 12:03] LABS: BAND% 10.0 % (1.0-6.0); EOSINOPHILS % MANUAL 10.0 % (0.0-5.0); LYMPHOCYTES % MANUAL 26.0 % (20.0-60.0); MONOCYTES % MANUAL 7.0 % (2.0-8.0); NEUTROPHILS % MANUAL 47.0 % (45.0-75.0); PLATELET ESTIMATE NORMAL
[2025-02-16] MEDS: ZOLPIDEM TARTRATE 5MG TABLET PO SCH (21:26)
[2025-02-17] VITALS (18 sets, daily range): BP systolic 98–154; BP diastolic 67–81; PULSE 94–114; RESP 21–30; TEMP 36.3–37; O2SAT 87–94
[2025-02-17 07:51] LABS: HEMATOCRIT. 29.4 % (36.0-48.0); HEMOGLOBIN. 9.5 g/dL (12.0-16.0); MEAN PLATELET VOLUME 9.1 fl (7.4-10.4); PLATELET 298 x1000/uL (130-400); RED BLOOD CELL COUNT 3.20 mill/uL (4.2-5.4); RED CELL DISTRIBUTION WIDTH 17.1 % (11.6-14.6)
[2025-02-17 08:06] LABS: CREATININE 1.1 mg/dL (0.6-1.0); UREA NITROGEN BLOOD 16 mg/dL (9-23)
[2025-02-17 08:08] LABS: PHOSPHORUS 7.6 mg/dL (2.5-4.9)
[2025-02-17] MEDS: MAGNESIUM 2 G PREMIX 50 ML IV ONE (12:03)
[2025-02-17 12:29] LABS: BAND% 6.0 % (1.0-6.0); EOSINOPHILS % MANUAL 1.0 % (0.0-5.0); LYMPHOCYTES % MANUAL 31.0 % (20.0-60.0); MONOCYTES % MANUAL 8.0 % (2.0-8.0); NEUTROPHILS % MANUAL 54.0 % (45.0-75.0); PLATELET ESTIMATE NORMAL
[2025-02-17] MEDS: TRAMADOL 50MG TABLET PO PRN (16:07)
[2025-02-17] MEDS: FUROSEMIDE 40MG/4ML VIAL IVP SCH (17:21)
[2025-02-18] VITALS (15 sets, daily range): BP systolic 92–156; BP diastolic 64–101; PULSE 99–122; RESP 19–30; TEMP 36.5–37.1; O2SAT 85–97
[2025-02-18 08:03] LABS: HEMATOCRIT. 30.7 % (36.0-48.0); HEMOGLOBIN. 9.9 g/dL (12.0-16.0); MEAN PLATELET VOLUME 9.1 fl (7.4-10.4); PLATELET 322 x1000/uL (130-400); RED BLOOD CELL COUNT 3.38 mill/uL (4.2-5.4); RED CELL DISTRIBUTION WIDTH 17.0 % (11.6-14.6)
[2025-02-18 08:09] LABS: CREATININE 0.9 mg/dL (0.6-1.0)
[2025-02-18 08:10] LABS: UREA NITROGEN BLOOD 18 mg/dL (9-23)
[2025-02-18 08:12] LABS: PHOSPHORUS 6.6 mg/dL (2.5-4.9)
[2025-02-18] MEDS: POTASSIUM CHLORIDE 20MEQ TABLET SR PO NR (09:36)
[2025-02-18] MEDS: METHYLPREDNISOLONE SOD SUCC 125MG/2ML (ACT-O-VIAL) IV SCH (12:11)
[2025-02-18] MEDS: DIPHENHYDRAMINE HCL/ZINC ACET 28 GM CREAM TOP PRN (12:32)
[2025-02-18 13:47] LABS: BG BASE EXCESS 7.7 mmol/L (-2.0-3.0); BG CARBOXYHEMOGLOBIN 1.7 % (0.5-1.5); BG DEOXYHEMOGLOBIN 4.7 % (0.0-5.0); BG FLOW(L/min) 40.00 L/min; BG FRACTION INSPIRED OXYGEN 95; BG HCO3 ACT 35.5 mmol/L (21.0-28.0); BG METHEMOGLOBIN 0.3 % (0.5-1.5); BG OXYGEN SATURATION 95.2 % (94.0-98.0); BG OXYHEMOGLOBIN 93.3 % (94.0-98.0); BG PCO2 69.2 mmHg (32.0-45.0); BG PH 7.328 (7.350-7.450); BG PO2 82.6 mmHg (83.0-108.0); BG SAMPLE SITE RIGHT RADIAL; BG TOTAL HEMOGLOBIN 10.5 g/dL (12.0-16.0); BG VENT MODE HIGH FLOW
[2025-02-18 13:52] LABS: BAND% 12.0 % (1.0-6.0); EOSINOPHILS % MANUAL 4.0 % (0.0-5.0); LYMPHOCYTES % MANUAL 28.0 % (20.0-60.0); MONOCYTES % MANUAL 3.0 % (2.0-8.0); NEUTROPHILS % MANUAL 53.0 % (45.0-75.0); PLATELET ESTIMATE NORMAL
[2025-02-18] MEDS: MAGNESIUM 1 G PREMIX 100 ML IV SCH (14:59)
[2025-02-19] VITALS (15 sets, daily range): BP systolic 119–170; BP diastolic 78–124; PULSE 98–109; RESP 17–28; TEMP 36.5–37.1; O2SAT 83–96
[2025-02-19 03:12] LABS: BG BASE EXCESS 6.7 mmol/L (-2.0-3.0); BG CARBOXYHEMOGLOBIN 0.3 % (0.5-1.5); BG DEOXYHEMOGLOBIN 13.3 % (0.0-5.0); BG FRACTION INSPIRED OXYGEN 100; BG HCO3 ACT 33.3 mmol/L (21.0-28.0); BG METHEMOGLOBIN 0.3 % (0.5-1.5); BG OXYGEN SATURATION 86.6 % (94.0-98.0); BG OXYHEMOGLOBIN 86.1 % (94.0-98.0); BG PCO2 59.0 mmHg (32.0-45.0); BG PH 7.370 (7.350-7.450); BG PO2 56.8 mmHg (83.0-108.0); BG SAMPLE SITE RIGHT RADIAL; BG TOTAL HEMOGLOBIN 10.3 g/dL (12.0-16.0); BG VENT MODE MASK - BIPAP; BG VENT RATE 20.0 set
[2025-02-19 08:20] LABS: CREATININE 0.9 mg/dL (0.6-1.0)
[2025-02-19 08:22] LABS: UREA NITROGEN BLOOD 17 mg/dL (9-23)
[2025-02-19 08:24] LABS: PHOSPHORUS 5.5 mg/dL (2.5-4.9)
[2025-02-19] MEDS: METHYLPREDNISOLONE SOD SUCC 40MG/ML (ACT-O-VIAL) IV SCH (09:18)
[2025-02-19] MEDS: MAGNESIUM 2 G PREMIX 50 ML IV SCH (11:53)
[2025-02-19] MEDS: HYDRALAZINE HCL 25MG TABLET PO PRN (17:51)
[2025-02-19 19:39] LABS: HEMATOCRIT. 29.2 % (36.0-48.0); HEMOGLOBIN. 9.6 g/dL (12.0-16.0); MEAN PLATELET VOLUME 9.1 fl (7.4-10.4); PLATELET 309 x1000/uL (130-400); RED BLOOD CELL COUNT 3.22 mill/uL (4.2-5.4); RED CELL DISTRIBUTION WIDTH 16.6 % (11.6-14.6)
[2025-02-19 20:34] LABS: BAND% 10.0 % (1.0-6.0); LYMPHOCYTES % MANUAL 14.0 % (20.0-60.0); METAMYELOCYTES % 3.0 % (0-0); MONOCYTES % MANUAL 7.0 % (2.0-8.0); MYELOCYTES % 3.0 % (0-0); NEUTROPHILS % MANUAL 63.0 % (45.0-75.0)
[2025-02-19 20:35] LABS: PLATELET ESTIMATE NORMAL
[2025-02-20] VITALS (27 sets, daily range): BP systolic 121–163; BP diastolic 78–146; PULSE 88–112; RESP 15–28; TEMP 36.4–36.8; O2SAT 88–100
[2025-02-20 07:41] LABS: HEMATOCRIT. 28.5 % (36.0-48.0); HEMOGLOBIN. 9.5 g/dL (12.0-16.0); MEAN PLATELET VOLUME 8.8 fl (7.4-10.4); PLATELET 271 x1000/uL (130-400); RED BLOOD CELL COUNT 3.17 mill/uL (4.2-5.4); RED CELL DISTRIBUTION WIDTH 16.6 % (11.6-14.6)
[2025-02-20 08:05] LABS: CREATININE 0.8 mg/dL (0.6-1.0); UREA NITROGEN BLOOD 32 mg/dL (9-23)
[2025-02-20 08:07] LABS: PHOSPHORUS 6.2 mg/dL (2.5-4.9)
[2025-02-20] MEDS: MAGNESIUM 4 G PREMIX 100 ML IV NR (12:36)
[2025-02-20] MEDS: INSULIN LISPRO 100 UNITS/ML SUBCUT SCH (12:37)
[2025-02-20 16:43] LABS: BG BASE EXCESS 5.5 mmol/L (-2.0-3.0); BG CARBOXYHEMOGLOBIN 0.3 % (0.5-1.5); BG DEOXYHEMOGLOBIN 5.6 % (0.0-5.0); BG FLOW(L/min) 30.00 L/min; BG FRACTION INSPIRED OXYGEN 70; BG HCO3 ACT 30.8 mmol/L (21.0-28.0); BG METHEMOGLOBIN 0.3 % (0.5-1.5); BG OXYGEN SATURATION 94.4 % (94.0-98.0); BG OXYHEMOGLOBIN 93.8 % (94.0-98.0); BG PCO2 48.4 mmHg (32.0-45.0); BG PH 7.421 (7.350-7.450); BG PO2 74.3 mmHg (83.0-108.0); BG SAMPLE SITE RIGHT RADIAL; BG TOTAL HEMOGLOBIN 10.3 g/dL (12.0-16.0); BG VENT MODE HIGH FLOW
[2025-02-20] MEDS: BUDESONIDE 0.5MG/2ML NEB HHN SCH (20:42)
[2025-02-20 22:00] LABS: EOSINOPHILS % MANUAL 2.0 % (0.0-5.0); LYMPHOCYTES % MANUAL 12.0 % (20.0-60.0); MONOCYTES % MANUAL 19.0 % (2.0-8.0); NEUTROPHILS % MANUAL 67.0 % (45.0-75.0); PLATELET ESTIMATE NORMAL
[2025-02-21] VITALS (24 sets, daily range): BP systolic 124–151; BP diastolic 80–111; PULSE 83–103; RESP 14–23; TEMP 36.4–37; O2SAT 92–99
[2025-02-21] MEDS: INSULIN GLARGINE 100 UNITS/ML SUBCUT SCH (08:46)
[2025-02-21 13:04] LABS: HEMATOCRIT. 31.1 % (36.0-48.0); HEMOGLOBIN. 10.1 g/dL (12.0-16.0); MEAN PLATELET VOLUME 8.3 fl (7.4-10.4); PLATELET 286 x1000/uL (130-400); RED BLOOD CELL COUNT 3.43 mill/uL (4.2-5.4); RED CELL DISTRIBUTION WIDTH 16.8 % (11.6-14.6)
[2025-02-21 13:52] LABS: CREATININE 0.8 mg/dL (0.6-1.0)
[2025-02-21 13:53] LABS: UREA NITROGEN BLOOD 31 mg/dL (9-23)
[2025-02-21 13:55] LABS: PHOSPHORUS 5.8 mg/dL (2.5-4.9)
[2025-02-21 21:20] LABS: LYMPHOCYTES % MANUAL 14.0 % (20.0-60.0); MONOCYTES % MANUAL 9.0 % (2.0-8.0); NEUTROPHILS % MANUAL 77.0 % (45.0-75.0); PLATELET ESTIMATE NORMAL
[2025-02-22] VITALS (21 sets, daily range): BP systolic 122–155; BP diastolic 85–110; PULSE 85–102; RESP 16–25; TEMP 36.7–37; O2SAT 89–99
[2025-02-22 07:32] LABS: HEMATOCRIT. 30.2 % (36.0-48.0); HEMOGLOBIN. 9.7 g/dL (12.0-16.0); MEAN PLATELET VOLUME 8.6 fl (7.4-10.4); PLATELET 258 x1000/uL (130-400); RED BLOOD CELL COUNT 3.34 mill/uL (4.2-5.4); RED CELL DISTRIBUTION WIDTH 17.4 % (11.6-14.6)
[2025-02-22 07:46] LABS: CREATININE 0.9 mg/dL (0.6-1.0); UREA NITROGEN BLOOD 31 mg/dL (9-23)
[2025-02-22 07:48] LABS: PHOSPHORUS 5.4 mg/dL (2.5-4.9)
[2025-02-22] MEDS: IPRATROPIUM/ALBUTEROL 0.5-3(2.5)MG/3ML NEB HHN PRN (08:42)
[2025-02-22 17:31] LABS: LYMPHOCYTES % MANUAL 19.0 % (20.0-60.0); MONOCYTES % MANUAL 8.0 % (2.0-8.0); NEUTROPHILS % MANUAL 73.0 % (45.0-75.0); PLATELET ESTIMATE NORMAL
[2025-02-23] VITALS (14 sets, daily range): BP systolic 107–135; BP diastolic 73–103; PULSE 86–98; RESP 17–28; TEMP 36.3–36.8; O2SAT 88–98
[2025-02-23 06:36] LABS: HEMATOCRIT. 30.0 % (36.0-48.0); HEMOGLOBIN. 9.7 g/dL (12.0-16.0); MEAN PLATELET VOLUME 8.8 fl (7.4-10.4); PLATELET 262 x1000/uL (130-400); RED BLOOD CELL COUNT 3.34 mill/uL (4.2-5.4); RED CELL DISTRIBUTION WIDTH 16.9 % (11.6-14.6)
[2025-02-23 06:53] LABS: CREATININE 1.0 mg/dL (0.6-1.0); UREA NITROGEN BLOOD 33 mg/dL (9-23)
[2025-02-23 06:55] LABS: PHOSPHORUS 5.4 mg/dL (2.5-4.9)
[2025-02-23] MEDS: POTASSIUM CHLORIDE 20MEQ TABLET SR PO NR (08:28)
[2025-02-23] MEDS: MAGNESIUM 2 G PREMIX 50 ML IV SCH (08:32)
[2025-02-23 15:16] LABS: BAND% 3.0 % (1.0-6.0); METAMYELOCYTES % 1.0 % (0-0); NEUTROPHILS % MANUAL 71.0 % (45.0-75.0); PLATELET ESTIMATE NORMAL
[2025-02-23 15:17] LABS: LYMPHOCYTES % MANUAL 23.0 % (20.0-60.0); MONOCYTES % MANUAL 2.0 % (2.0-8.0)
[2025-02-23] MEDS: HYDROXYZINE 25MG TABLET PO PRN (16:39)
[2025-02-23] MEDS: GABAPENTIN 100MG CAPSULE PO SCH ×2 (17:28→21:56)
[2025-02-23 17:42] LABS: BG BASE EXCESS 4.3 mmol/L (-2.0-3.0); BG CARBOXYHEMOGLOBIN 0.7 % (0.5-1.5); BG DEOXYHEMOGLOBIN 9.9 % (0.0-5.0); BG FLOW(L/min) 0 L/min; BG FRACTION INSPIRED OXYGEN 21; BG HCO3 ACT 29.1 mmol/L (21.0-28.0); BG METHEMOGLOBIN 0.3 % (0.5-1.5); BG OXYGEN SATURATION 90.0 % (94.0-98.0); BG OXYHEMOGLOBIN 89.1 % (94.0-98.0); BG PCO2 43.9 mmHg (32.0-45.0); BG PH 7.439 (7.350-7.450); BG PO2 61.0 mmHg (83.0-108.0); BG SAMPLE SITE LEFT RADIAL; BG TOTAL HEMOGLOBIN 13.7 g/dL (12.0-16.0); BG VENT MODE ROOM AIR
[2025-02-23] MEDS: FAMOTIDINE 20MG TABLET PO SCH (21:57)
[2025-02-24] VITALS (7 sets, daily range): BP systolic 109–136; BP diastolic 68–86; PULSE 79–100; RESP 15–21; TEMP 36.4–36.9; O2SAT 90–93
[2025-02-24 06:19] LABS: HEMATOCRIT. 33.1 % (36.0-48.0); HEMOGLOBIN. 10.5 g/dL (12.0-16.0); MEAN PLATELET VOLUME 8.7 fl (7.4-10.4); PLATELET 214 x1000/uL (130-400); RED BLOOD CELL COUNT 3.64 mill/uL (4.2-5.4); RED CELL DISTRIBUTION WIDTH 17.2 % (11.6-14.6)
[2025-02-24 06:39] LABS: CREATININE 0.9 mg/dL (0.6-1.0)
[2025-02-24 06:40] LABS: UREA NITROGEN BLOOD 31 mg/dL (9-23)
[2025-02-24 06:42] LABS: PHOSPHORUS 6.9 mg/dL (2.5-4.9)
[2025-02-24] MEDS: POTASSIUM CHLORIDE 20MEQ TABLET SR PO SCH (14:21)
[2025-02-24] MEDS: FUROSEMIDE 40MG TABLET PO SCH (17:15)
[2025-02-24 18:12] LABS: BAND% 7.0 % (1.0-6.0); EOSINOPHILS % MANUAL 1.0 % (0.0-5.0); LYMPHOCYTES % MANUAL 20.0 % (20.0-60.0); METAMYELOCYTES % 2.0 % (0-0); MONOCYTES % MANUAL 9.0 % (2.0-8.0); MYELOCYTES % 2.0 % (0-0); NEUTROPHILS % MANUAL 59.0 % (45.0-75.0); PLATELET ESTIMATE NORMAL
[2025-02-25] VITALS (7 sets, daily range): BP systolic 100–152; BP diastolic 66–97; PULSE 87–95; RESP 16–20; TEMP 36.3–37; O2SAT 90–95
[2025-02-25] MEDS: LIDOCAINE 5% PATCH TOP SCH (17:28)
[2025-02-26] VITALS: BP 139/80; PULSE 18; RESP 18; TEMP 36.7; O2SAT 98
[2025-02-26 04:00] VITALS: BP 112/74; PULSE 88; RESP 20; TEMP 37; O2SAT 97
[2025-02-26 06:40] LABS: HEMATOCRIT. 30.3 % (36.0-48.0); HEMOGLOBIN. 9.9 g/dL (12.0-16.0); MEAN PLATELET VOLUME 9.2 fl (7.4-10.4); PLATELET 193 x1000/uL (130-400); RED BLOOD CELL COUNT 3.32 mill/uL (4.2-5.4); RED CELL DISTRIBUTION WIDTH 17.1 % (11.6-14.6)
[2025-02-26 06:50] LABS: CREATININE 0.8 mg/dL (0.6-1.0); UREA NITROGEN BLOOD 21 mg/dL (9-23)
[2025-02-26 06:52] LABS: PHOSPHORUS 6.6 mg/dL (2.5-4.9)
[2025-02-26 08:00] VITALS: BP 132/87; PULSE 83; RESP 18; TEMP 36.5; O2SAT 97
[2025-02-26 12:00] VITALS: BP 120/78; PULSE 93; RESP 20; TEMP 36.6; O2SAT 96
[2025-02-26 16:00] VITALS: BP 128/82; PULSE 112; RESP 20; TEMP 36.7; O2SAT 93
[2025-02-26 19:41] LABS: BAND% 2.0 % (1.0-6.0); EOSINOPHILS % MANUAL 1.0 % (0.0-5.0); LYMPHOCYTES % MANUAL 19.0 % (20.0-60.0); MONOCYTES % MANUAL 11.0 % (2.0-8.0); NEUTROPHILS % MANUAL 67.0 % (45.0-75.0); PLATELET ESTIMATE NORMAL
[2025-02-26 20:00] VITALS: BP 131/87; PULSE 104; RESP 20; TEMP 36.7; O2SAT 98
[2025-02-26] MEDS: NYSTATIN 100,000 UNITS/ML 5ML UDC SSW SCH (20:29)
[2025-02-26] MEDS: BACITRACIN/POLYMYXIN B SULFATE OINT 15GM TOP NR (23:43)
[2025-02-27] VITALS: BP 130/80; PULSE 78; RESP 20; TEMP 37; O2SAT 98
[2025-02-27 04:00] VITALS: BP 100/65; PULSE 97; RESP 20; TEMP 36.9; O2SAT 98
[2025-02-27 08:00] VITALS: BP 116/74; PULSE 101; RESP 18; TEMP 36.6; O2SAT 95
[2025-02-27 12:00] VITALS: BP 124/86; PULSE 100; RESP 20; TEMP 36.6; O2SAT 100
[2025-02-27 16:00] VITALS: BP 139/90; PULSE 108; RESP 20; TEMP 37.9; O2SAT 94
[2025-02-27 20:00] VITALS: BP 108/78; PULSE 106; RESP 19; TEMP 36.3; O2SAT 97
[2025-02-27] MEDS: GABAPENTIN 300MG CAPSULE PO SCH (21:03)
[2025-02-27 22:37] LABS: BG BASE EXCESS 1.1 mmol/L (-2.0-3.0); BG CARBOXYHEMOGLOBIN 0.8 % (0.5-1.5); BG DEOXYHEMOGLOBIN 10.5 % (0.0-5.0); BG FRACTION INSPIRED OXYGEN 21; BG HCO3 ACT 25.3 mmol/L (21.0-28.0); BG METHEMOGLOBIN 0.3 % (0.5-1.5); BG OXYGEN SATURATION 89.4 % (94.0-98.0); BG OXYHEMOGLOBIN 88.4 % (94.0-98.0); BG PCO2 38.8 mmHg (32.0-45.0); BG PH 7.433 (7.350-7.450); BG PO2 59.8 mmHg (83.0-108.0); BG SAMPLE SITE LEFT BRACHIAL; BG TOTAL HEMOGLOBIN 11.1 g/dL (12.0-16.0); BG VENT MODE ROOM AIR
[2025-02-28] VITALS: BP 149/76; PULSE 96; RESP 20; TEMP 36.5; O2SAT 96
[2025-02-28] MEDS: BACITRACIN/POLYMYXIN B SULFATE OINT 15GM TOP NR (00:15)
[2025-02-28 04:00] VITALS: BP 141/83; PULSE 104; RESP 20; TEMP 36.6
[2025-02-28 08:00] VITALS: BP 159/84; PULSE 99; RESP 18; TEMP 36.7; O2SAT 96
[2025-02-28 08:25] VITALS: PULSE 99
== END 2025-02-28 09:36 | disposition left against medical advice (07) | DRG 207 ==
LOC: ER 13:22 → MICUSO 20:03 → EDBEDREQTM 20:41 → EDBEDREQ 20:41 → ENRESERV 21:18 → 5EST 01-21 22:20 → MICUSO 01-30 17:42 → 5EST 02-02 00:10 → 8WST 02-25 19:48
PROVIDERS: ADMIT Internal Medicine; ATTEND Internal Medicine
PROC: 5A1955Z Respiratory Ventilation, Greater than 96 Consecutive Hours (ICD-10-PCS; principal; 2025-01-08)
PROC: 0BH17EZ Insertion of Endotracheal Airway into Trachea, Via Natural or Artificial Opening (ICD-10-PCS; 2025-01-08)
PROC: 02HV33Z Insertion of Infusion Device into Superior Vena Cava, Percutaneous Approach (ICD-10-PCS; 2025-01-08)
PROC: B548ZZA Ultrasonography of Superior Vena Cava, Guidance (ICD-10-PCS; 2025-01-08)
PROC: 0W9930Z Drainage of Right Pleural Cavity with Drainage Device, Percutaneous Approach (ICD-10-PCS; 2025-01-08)
PROC: 5A1D70Z Performance of Urinary Filtration, Intermittent, Less than 6 Hours Per Day (ICD-10-PCS; 2025-01-11)
PROC: 05HM33Z Insertion of Infusion Device into Right Internal Jugular Vein, Percutaneous Approach (ICD-10-PCS; 2025-01-11)
PROC: B543ZZA Ultrasonography of Right Jugular Veins, Guidance (ICD-10-PCS; 2025-01-11)
PROC: 5A1D70Z Performance of Urinary Filtration, Intermittent, Less than 6 Hours Per Day (ICD-10-PCS; 2025-01-12)
PROC: 5A1D70Z Performance of Urinary Filtration, Intermittent, Less than 6 Hours Per Day (ICD-10-PCS; 2025-01-13)
PROC: 03HY32Z Insertion of Monitoring Device into Upper Artery, Percutaneous Approach (ICD-10-PCS; 2025-01-13)
PROC: 5A1D70Z Performance of Urinary Filtration, Intermittent, Less than 6 Hours Per Day (ICD-10-PCS; 2025-01-15)
PROC: 5A1D70Z Performance of Urinary Filtration, Intermittent, Less than 6 Hours Per Day (ICD-10-PCS; 2025-01-16)
PROC: 5A1D70Z Performance of Urinary Filtration, Intermittent, Less than 6 Hours Per Day (ICD-10-PCS; 2025-01-17)
PROC: 5A1D70Z Performance of Urinary Filtration, Intermittent, Less than 6 Hours Per Day (ICD-10-PCS; 2025-01-18)
PROC: 5A1D70Z Performance of Urinary Filtration, Intermittent, Less than 6 Hours Per Day (ICD-10-PCS; 2025-01-19)
PROC: 5A1D70Z Performance of Urinary Filtration, Intermittent, Less than 6 Hours Per Day (ICD-10-PCS; 2025-01-20)
PROC: 5A09357 Assistance with Respiratory Ventilation, Less than 24 Consecutive Hours, Continuous Positive Airway Pressure (ICD-10-PCS; 2025-01-25)
PROC: 5A09357 Assistance with Respiratory Ventilation, Less than 24 Consecutive Hours, Continuous Positive Airway Pressure (ICD-10-PCS; 2025-01-26)
PROC: 5A0945A Assistance with Respiratory Ventilation, 24-96 Consecutive Hours, High Flow/Velocity Cannula (ICD-10-PCS; 2025-01-26)
PROC: 5A09357 Assistance with Respiratory Ventilation, Less than 24 Consecutive Hours, Continuous Positive Airway Pressure (ICD-10-PCS; 2025-01-30)
PROC: 5A0955A Assistance with Respiratory Ventilation, Greater than 96 Consecutive Hours, High Flow/Velocity Cannula (ICD-10-PCS; 2025-01-30)
PROC: 0W993ZZ Drainage of Right Pleural Cavity, Percutaneous Approach (ICD-10-PCS; 2025-02-01)
PROC: 5A09357 Assistance with Respiratory Ventilation, Less than 24 Consecutive Hours, Continuous Positive Airway Pressure (ICD-10-PCS; 2025-02-09)
PROC: 5A09357 Assistance with Respiratory Ventilation, Less than 24 Consecutive Hours, Continuous Positive Airway Pressure (ICD-10-PCS; 2025-02-10)
PROC: 5A0955A Assistance with Respiratory Ventilation, Greater than 96 Consecutive Hours, High Flow/Velocity Cannula (ICD-10-PCS; 2025-02-11)
PROC: 5A09357 Assistance with Respiratory Ventilation, Less than 24 Consecutive Hours, Continuous Positive Airway Pressure (ICD-10-PCS; 2025-02-19)
PROC: 5A09357 Assistance with Respiratory Ventilation, Less than 24 Consecutive Hours, Continuous Positive Airway Pressure (ICD-10-PCS; 2025-02-20)
DX: J68.0 Bronchitis and pneumonitis due to chemicals, gases, fumes and vapors (principal); N17.0 Acute kidney failure with tubular necrosis; A41.9 Sepsis, unspecified organism; G93.41 Metabolic encephalopathy; J80 Acute respiratory distress syndrome; I21.4 Non-ST elevation (NSTEMI) myocardial infarction; J93.9 Pneumothorax, unspecified; E87.3 Alkalosis; N39.0 Urinary tract infection, site not specified; E66.2 Morbid (severe) obesity with alveolar hypoventilation; Z68.42 Body mass index [BMI] 45.0-49.9, adult; K56.7 Ileus, unspecified; I50.30 Unspecified diastolic (congestive) heart failure; T17.890A Other foreign object in other parts of respiratory tract causing asphyxiation, initial encounter; E87.29 Other acidosis; J91.8 Pleural effusion in other conditions classified elsewhere; Z20.822 Contact with and (suspected) exposure to COVID-19; R16.2 Hepatomegaly with splenomegaly, not elsewhere classified; E83.51 Hypocalcemia; E11.65 Type 2 diabetes mellitus with hyperglycemia; E87.8 Other disorders of electrolyte and fluid balance, not elsewhere classified; K76.0 Fatty (change of) liver, not elsewhere classified; B96.20 Unspecified Escherichia coli [E. coli] as the cause of diseases classified elsewhere; E78.5 Hyperlipidemia, unspecified; Z90.49 Acquired absence of other specified parts of digestive tract; E87.5 Hyperkalemia; Z68.38 Body mass index [BMI] 38.0-38.9, adult; I11.0 Hypertensive heart disease with heart failure; Z53.29 Procedure and treatment not carried out because of patient's decision for other reasons; D64.9 Anemia, unspecified; R15.9 Full incontinence of feces; D69.6 Thrombocytopenia, unspecified; E03.9 Hypothyroidism, unspecified; W44.F9XA Other object of natural or organic material, entering into or through a natural orifice, initial encounter; Y93.89 Activity, other specified; Y92.89 Other specified places as the place of occurrence of the external cause; Y99.9 Unspecified external cause status; T59.891A Toxic effect of other specified gases, fumes and vapors, accidental (unintentional), initial encounter; B37.9 Candidiasis, unspecified; D72.10 Eosinophilia, unspecified; R32 Unspecified urinary incontinence; Z79.4 Long term (current) use of insulin; Z82.49 Family history of ischemic heart disease and other diseases of the circulatory system; Z99.2 Dependence on renal dialysis; E83.42 Hypomagnesemia; L53.9 Erythematous condition, unspecified
CPT/HCPCS: 31720; 32555; 36415; 36556; 36600; 71045; 71250; 71275; 74018; 74176; 74177; 76604; 76705; 77001; 77012; 78580; 80048; 80053; 80061; 80076; 80202; 80305; 81003; 82010; 82330; 82375; 82533; 82550; 82553; 82570; 82805; 82962; 83036; 83516; 83520; 83605; 83615; 83735; 83880; 83935; 84100; 84132; 84145; 84155; 84156; 84439; 84443; 84478; 84481; 84484; 84703; 85025; 85027; 85379; 85651; 86141; 86160; 86256; 86705; 86709; 87070; 87077; 87186; 87340; 87420; 87426; 87804; 90935; 93005; 93306; 93970; 94003; 94070; 94640; 94660; 94664; 94667; 94760; 96365; 96367; 97110; 97116; 97162; 97164; 97167; 97168; 97530; 97535; 98960; 99291; 99292; A4606; A6261; C1729; C1752; J0360; J0456; J1644; J1650; J1815; J1938; J2003; J2060; J2185; J2250; J2270; J2405; J2470; J2543; J2704; J2765; J2919; J3010; J3105; J3373; J3475; J3480; J3490; J7030; J7050; J7060; J7070; J7608; J7626; Q9963; J0131